=== PATIENT | female | born 1955 | race Caucasian/White ===

== ENCOUNTER → 2017-04-17 | Outpatient (CLI) | payer BC ==
[~2017-04-17] MED LIST: CATHETER FLUSH 10 ML SYR IV PRN; LEVO112T55 PO; LEVO125T66 PO; OXYC-202 PO
[2017-04-17 08:19] VITALS: BP 131/83
[2017-04-17 08:30] VITALS: BP 192/87
[2017-04-17 08:33] VITALS: BP 168/83
[2017-04-17 08:36] VITALS: BP 157/83
--- NOTE | 2017-04-18 10:27 | STRESS TEST ---
DATE OF SERVICE: 04/17/2017 NUCLEAR MYOVIEW REPORT SUMMARY: The patient was injected with 10.94 mCi of technetium-99 Myoview and the resting images were obtained. Then, the patient received a stress dose of 31.4 mCi of technetium-99, and the stress images were acquired. The test was supervised by Dr. Koroma. The resting and stress images were reviewed and compared in the short axis, horizontal long axis, and vertical long axis views. Review of the images showed breast attenuation affecting the quality of the images. There is mild decreased uptake involving the mid to apical anterior wall true apex with subtle reversibility. SSS is 1, SDS 1, TID value is 1.13. On the gated images, the left ventricle appeared to be normal size with normal contractility. Calculated ejection fraction is 58%. Anterior wall is tye normally. CONCLUSION: 1. Breast attenuation affecting the quality of the images with typical female pattern. No significant ischemia or infarction on SPECT images. 2. Normal left ventricular size with normal contractility, calculated ejection fraction is 58%. Job ID: [id number] DocumentID: [id number] Dictated Date: 04/17/2017 11:25:18 Regional Climate Change Analyst Date: 04/17/2017 14:34:11 Dictated By: LEO ESCALANTE MD
== END ==
LOC: CARD 07:11
PROVIDERS: ATTEND Internal Medicine
DX: R06.02 Shortness of breath (principal)
CPT/HCPCS: 78452; 93017

== ENCOUNTER → 2017-05-13 | Outpatient (CLI) | payer BC ==
[~2017-05-13] MED LIST changes: -CATHETER FLUSH 10 ML SYR IV PRN
--- NOTE | 2017-05-14 18:03 | Diagnostic Imaging Report ---
Bilateral screening mammogram 2D views with tomosynthesis The current study was also evaluated with a Computer Aided Detection (CAD) system. INDICATION: Screening. No current complaints stated on the questionnaire. COMPARISON: 08/07/2015. FINDINGS: The breasts are composed of scattered fibroglandular densities. There are multiple bilateral benign-appearing calcifications seen. Allowing for technique and positional differences, no suspicious change is seen. IMPRESSION: No significant change. ACR BI-RADS Category 2: Benign findings. Result letter will be mailed to the patient. Note: At least 10% of breast cancer is not imaged by mammography. Dictated by: Dictated on workstation # [id number]
== END ==
LOC: RAD 09:11
PROVIDERS: ATTEND Internal Medicine
DX: Z12.31 Encounter for screening mammogram for malignant neoplasm of breast (principal)
CPT/HCPCS: 77067

== ENCOUNTER → 2018-06-01 | Outpatient (CLI) | payer BC ==
--- NOTE | 2018-06-01 12:37 | Diagnostic Imaging Report ---
INDICATION: Routine screening. Comparison is made with prior mammogram from 05/13/2017 and 08/07/2015. 2-D and 3-D bilateral screening mammography was performed with a Computer Aided Detection (CAD) system. FINDINGS: Scattered fibroglandular densities are identified bilaterally. Numerous benign-appearing calcifications are identified bilaterally. There is an area of nodularity and architectural distortion in the central right breast at the nipple line on the CC view approximately 7 cm from the nipple. No definite correlate is seen on the MLO view but may be at the nipple line as well. Regardless additional views are recommended. Circumscribed density in the outer left breast is stable. No malignant-appearing microcalcifications are seen. Axillae are unremarkable. IMPRESSION: Right breast nodularity and architectural distortion. Additional views are recommended for further evaluation. ACR BI-RADS Category 0: Incomplete. (Needs additional imaging evaluation). Result letter will be mailed to the patient. Note: At least 10% of breast cancer is not imaged by mammography. Dictated by: Dictated on workstation # [id number]
== END ==
LOC: RAD 10:16
PROVIDERS: ATTEND Internal Medicine
DX: Z12.31 Encounter for screening mammogram for malignant neoplasm of breast (principal); N63.10 Unspecified lump in the right breast, unspecified quadrant; N64.89 Other specified disorders of breast
CPT/HCPCS: 77067

== ENCOUNTER → 2018-07-24 | Outpatient (CLI) | payer BC ==
[~2018-07-24] MED LIST changes: +GADOBUTROL 15 MMOL/15 ML (GADAVIST) VIAL IV ONE; -OXYC-202 PO; +OXYC1TAB12 PO
== END ==
LOC: RAD 09:19
PROVIDERS: ATTEND Surgery
DX: N63.10 Unspecified lump in the right breast, unspecified quadrant (principal); Z53.8 Procedure and treatment not carried out for other reasons

== ENCOUNTER 2019-12-14 09:30 | Inpatient (IN) | payer MEDICARE, OTHER ==
[~2019-12-14] VITALS: Ht 167.7 cm; Wt 106.7 kg
[~2019-12-14 09:30] MED LIST changes: -GADOBUTROL 15 MMOL/15 ML (GADAVIST) VIAL IV ONE
[2019-12-29] MEDS ORDERED: LEVO100T7 PO (12:54)
[2019-12-29] MEDS ORDERED: ANAS1TAB50 PO (12:54)
--- NOTE | 2020-01-03 08:41 | HISTORY AND PHYSICAL ---
DATE OF SERVICE: ADMISSION HISTORY AND PHYSICAL DATE OF ADMISSION: 01/04/2020. This will be for inpatient admission on 01/04/2020, date of admission, date of service, date of surgery will all be 01/04/2020 for left total knee arthroplasty. The patient will require regular inpatient admission for pain management, gait abnormalities, need for physical therapy and associated comorbidities. HISTORY OF PRESENT ILLNESS: The patient is a 64-year-old female with longstanding progressive left knee pain. She has undergone treatment with injections, anti-inflammatories and rest without relief. She reports functional impairment because of the knee. Her symptoms have been progressive to the point where it is interfering with her activities of daily living and because of this, she has elected to proceed with surgical intervention and with her x-rays. REVIEW OF SYSTEMS: No chest pain, no shortness of breath and no dysuria. PRIMARY CARE PROVIDER: Dr. Koroma. PAST MEDICAL HISTORY: Significant for breast cancer. Also significant for hypothyroidism. PAST SURGICAL HISTORY: Right mastectomy with lymph node biopsy with left prophylactic mastectomy, colonoscopy, cataract excision, appendectomy, tubal ligation, iliac vein exploration, D and C. FAMILY HISTORY: Significant for stroke and colon cancer. ALLERGIES: No known drug allergies. SOCIAL HISTORY: The patient denies alcohol or tobacco use. MEDICATIONS: Levothyroxine, Advil, Arimidex, omeprazole, Viactiv and MiraLax. PHYSICAL EXAMINATION: GENERAL: The patient is well developed, well-nourished, in no acute distress. HEENT: Normocephalic and atraumatic. Pupils are equal, round and reactive to light. Oropharynx is clear. NECK: Supple, no lymphadenopathy. LUNGS: Clear to auscultation bilaterally. HEART: Regular rate and rhythm. ABDOMEN: Soft, nontender and nondistended. EXTREMITIES: The patient ambulates with an antalgic gait on the left. She has pain along the medial joint line. She has pain medially with Geoff's. Range of motion is 0/4/130. There is no varus valgus laxity. Negative anterior and posterior drawer. IMPRESSION: Severe left knee osteoarthritis. PLAN: Left total knee arthroplasty. We discussed risks, benefits, options, ramifications and recovery. She understands and wishes to proceed. Job ID: [id number] DocumentID: [id number] Dictated Date: 12/21/2019 11:15:12 Outdoor Pursuits Instructor Date: 12/21/2019 11:39:46 Dictated By: DELMY LANDAVERDE MD
[2020-01-04] VITALS (10 sets, daily range): BP systolic 116–156; BP diastolic 63–78
[2020-01-04] MEDS: LACTATED RINGERS 1,000 ML IV PRN ×3 (06:21→09:47)
[2020-01-04] MEDS ORDERED: BUPIVACAINE 0.25% 30 ML (SENSORCAINE) VIAL ONE (06:29)
[2020-01-04] MEDS ORDERED: fentaNYL INJECTION 100 MCG/2 ML AMP ONE ×2 (06:29→08:31)
[2020-01-04] MEDS ORDERED: proPOfol 200 MG/20 ML (DIPRIVAN) VIAL IV ONE (06:29)
[2020-01-04] MEDS ORDERED: SEVOFLURANE (ULTANE) 15 ML INHAL SOLN ONE ×2 (06:29→09:01)
[2020-01-04] MEDS ORDERED: MIDAZOLAM 2 MG/2 ML (VERSED) VIAL ONE (06:29)
[2020-01-04] MEDS ORDERED: ONDANSETRON 4 MG/2 ML (SDV) Z0FRAN ONE ×3 (06:29→09:48)
[2020-01-04] MEDS ORDERED: LIDOCAINE PF 2% 5 ML (XYLOCAINE) VIAL ONE (06:29)
[2020-01-04] MEDS ORDERED: DEXAMETHASONE 10 MG/ML (DECADRON) 1 ML VIAL ONE (06:29)
[2020-01-04] MEDS ORDERED: SCOPOLAMINE 1.5 MG (TRANSDERM-SCOP) PATCH TOP ONE (06:30)
[2020-01-04] MEDS ORDERED: ONDANSETRON 4 MG/2 ML (SDV) Z0FRAN IV ONE (06:30)
[2020-01-04] MEDS ORDERED: CEFUROXIME INJECTION 1,500 MG in WATER (STERILE) FOR INJECTION 15 ML IV ONE (06:30)
[2020-01-04] MEDS ORDERED: FAMOTIDINE 20MG/2ML IV (PEPCID) IV ONE (06:30)
[2020-01-04] MEDS ORDERED: CATHETER FLUSH 10 ML SYR IV PRN (06:45)
[2020-01-04] MEDS ORDERED: ONDANSETRON 4 MG/2 ML (SDV) Z0FRAN IVP PRN (07:15)
[2020-01-04] MEDS ORDERED: morphine PCA 100 MG/100 ML BAG IV PRN (07:15)
[2020-01-04] MEDS ORDERED: ACETAMINOPHEN 325 MG TABLET PO PRN (07:15)
[2020-01-04] MEDS ORDERED: diphenhydrAMINE 50 MG/ML INJ (BENADRYL) IVP PRN (07:15)
--- NOTE | 2020-01-04 07:26 | Progress Note-Pre Operative ---
Pre-Operative Progress Note H&P Reviewed The H&P was reviewed, patient examined and no changes noted. Date Seen by Provider: Jan 04, 2020 Time Seen by Provider: 07:20 Date H&P Reviewed: Jan 04, 2020 Time H&P Reviewed: 07:11 Pre-Operative Diagnosis: left knee primary osteoarthritis DELMY LANDAVERDE MD Jan 04, 2020 07:26
--- NOTE | 2020-01-04 07:27 | Progress Note-Post Operative ---
Post-Operative Progess Note Surgeon (s)/Sap Solution Manager Consultant (s) Surgeon DELMY LANDAVERDE MD Sap Solution Manager Consultant: Jose Dinero Pre-Operative Diagnosis left knee primary osteoarthritis Post-Operative Diagnosis left knee primary osteoarthritis Procedure & Operative Findings Date of Procedure 01/04/20 Procedure Performed/Findings left total knee arthroplasty Anesthesia Type GETA Estimated Blood Loss Estimated blood loss (mL): minimal Specimens/Packing Specimens Removed none Packing: none DELMY LANDAVERDE MD Jan 04, 2020 07:27
[2020-01-04] MEDS ORDERED: OXYC1TAB87 PO (07:29)
[2020-01-04] MEDS ORDERED: INTRA-ARTICULAR IU ONE ×5 (07:30)
--- NOTE | 2020-01-04 07:31 | D/C HH Face to Face Order ---
D/C Face to Face Orders Reconcile Patient Problems Problems Reviewed?: Yes Instructions for Patient Via [facility] Now In Store, Patient Instructions/FollowUp: three weeks Physician to follow Patient: three weeks Discharge Diet for Home: Regular Diet Patient Data-Allergies,Ht & Wt Patient Allergies: Coded Allergies: codeine (Unverified Allergy, Unknown, 06/10/16) Height (Feet): 5 Height (Inches): 6.00 Weight (Pounds): 250 Weight (Ounces): 0.0 Home Health Need/Face to Face Date of Face to Face: Jan 04, 2020 Clinical Findings: Instability, Muscle weakness, Pain with ambulation, Unsteady gait I have seen Pt [id number]: Yes Discharged To: Home Diagnosis/Conditions: left total knee arthroplasty Patient is Homebound due to: Rosalba fall risk due to instabilty, Muscle weakness, Pain w/ambulation Homebound Status Due to the above stated illness, injury or surgical procedure (medical condition or diagnosis) and associated clinical findings, the patient is homebound because of his/her inability to leave home except with aid of a supportive device and/or person AND leaving the home requires a considerable and taxing effort or is medically contraindicated. Pt req the following assistanc: [facility] Nursing Orders Home Health Services Order: Physical Therapy-Evaluate & Treat DC left knee dimas and apply steri strips 01/18/20 Therapy Orders Therapy Orders: Physical Therapy, PT to assess for OT Therapy Specific Orders: Eval assistive deivces, Teach enviro modifications/safety, Gait training, Increase strength/endurance, Provider maintenance therapy, Restore ROM Certify Stmt I certify that this patient is under my care and that I, a nurse practitioner or a physician; a insurance sales assistant working with me, had a face to face encounter that - meets the physician face to face encounter requirements with this patient as dated. DELMY LANDAVERDE MD Jan 04, 2020 07:31
[2020-01-04] MEDS ORDERED: morphine INJ 10 MG/ML 1ML (SYR OR VIAL) ONE (09:43)
[2020-01-04] MEDS ORDERED: morphine INJ 10 MG/ML 1ML (SYR OR VIAL) IVP ONE (09:45)
[2020-01-04] MEDS: ONDANSETRON 4 MG/2 ML (SDV) Z0FRAN IVP PRN ×2 (09:46→09:54)
[2020-01-04] MEDS ORDERED: TRANEXAMIC ACID 100 MG/ML 10 ML INJECTION IV ONE (10:14)
[2020-01-04] MEDS: SENNA W/DOCUSATE (SENOKOT S) TABLET PO SCH ×2 (10:15→20:33)
--- NOTE | 2020-01-04 10:15 | NUR ---
PT ADMITTED TO ROOM 429 FOR TOTAL LEFT KNEE REPLACEMENT. PT IS A/OX4 BUT IS DROWSY/NAUSEATED. BILATERAL PEDAL PULSES PRESENT. YONATAN HOSE AND POLAR PACK IN PLACE TO LEFT KNEE. PT AND FAMILY ORIENTED TO ROOM, CALL LIGHT WITHIN REACH.
--- NOTE | 2020-01-04 10:17 | Diagnostic Imaging Report ---
INDICATION: Status post left knee replacement. COMPARISON: None. FINDINGS: Two views of the left knee were obtained. Expected postoperative changes are seen from left knee total arthroplasty. Femoral and tibial components appear well-seated. There is no evidence of periprosthetic fracture. There is a small amount of subcutaneous emphysema in the soft tissues over the knee. Skin dimas are seen centrally over the anterior aspect of the knee. No unexpected radiopaque foreign bodies are identified. IMPRESSION: Expected postsurgical changes from left knee total arthroplasty, as described above. No unexpected radiopaque foreign bodies. Dictated by: Dictated on workstation # [id number]
--- NOTE | 2020-01-04 11:21 | Consultation - Hospitalist ---
HPI History of Present Illness: HPI/Chief Complaint CC: Medical management following uncomplicated left knee replacement by Dr. Ruiz HPI: This is a 64yoWF clinic pt of mine with a history of breast cancer and hypothyroidism who presents after a left knee replacement in an uncomplicated manner. Currently she is nauseated but drowsy. Family is at the bedside and will monitor the pt closely in the meantime. Source: patient, family, RN/MD Exam Limitations: clinical condition Date Seen 01/04/20 Attending Physician Brendon Ruiz MD PCP Katherine Koroma DO Referring Physician Date of Admission Jan 04, 2020 at 06:11 Home Medications & Allergies Home Medications Reviewed patient Home Medication Reconciliation performed by pharmacy medication reconciliations pharmacy laboratory technician and/or nursing. Patients Allergies have been reviewed. Allergies Allergies Coded Allergies codeine (Unverified Allergy, Unknown, PT HAS RECEIVED MORPHINE IN THE PAST, 01/04/20) Past Uytjvlh-Czhrvw-Dzuofb Hx Past Med/Social Hx: Reviewed Nursing Past Med/Soc Hx, Reviewed and Corrections made Patient Social History Marrital Status: Employed/Student: employed (Occupational Therapy) Alcohol Use: Denies Use Recreational Drug Use: No Smoking Status: Never a Smoker Physical Abuse Screen: No Sexual Abuse: No Recent Foreign Travel: No Contact w/other who traveled: No Recent Hopitalizations: No Recent Infectious Disease Expo: No Immunizations Up To Date Date of Pneumonia Vaccine: Jul 30, 2019 Date of Influenza Vaccine: Jul 26, 2019 Seasonal Allergies Seasonal Allergies: Yes Past Medical History Surgeries: Breast Currently Using CPAP: No Currently Using BIPAP: No Reproductive: Yes (PMB) Sexually Transmitted Disease: No HIV/AIDS: No Gastrointestinal: Polyps Musculoskeletal: Arthritis Endocrine: Hypothyroidsim Loss of Vision: Denies Hearing Impairment: Denies Cancer: Breast What Type of Treatment Did You: Surgical Intervention History of Blood Disorders: No Adverse Reaction to Blood Bernardo: Yes (HAS HAD BLOOD WITH NO REACTION) Family History Alzheimer's disease 19 MOTHER Colon cancer G8 BROTHER Dementia 19 FATHER Diabetes mellitus G8 BROTHER G8 SISTER Hypertension 19 MOTHER Thyroid disease G8 BROTHER G8 SISTER Review of Systems Constitutional: see HPI Musculoskeletal: joint pain Physical Exam Physical Exam Vital Signs Vital Signs - First Documented 01/04/20 01/04/20 01/04/20 01/04/20 06:30 09:14 09:20 12:00 Temp 36.6 Pulse 80 Resp 20 B/P (MAP) 125/ Pulse Ox 96 O2 Delivery Room Air O2 Flow Rate 8 Capillary Refill : Less Than 3 Seconds Height, Weight, BMI Height: 5'6.00" Weight: 250lbs. 0.0oz. 113.415011ow; 232.80 BMI Method: General Appearance: WD/WN, Chronically ill, Mild Distress Eyes: Bilateral Eye Normal Inspection, Bilateral Eye PERRL HEENT: PERRL/EOMI, Normal ENT Inspection, Pharynx Normal Neck: Full Range of Motion, Normal Inspection, Non Tender, Supple, Carotid Bruit Respiratory: Chest Non Tender, Lungs Clear, Normal Breath Sounds, No Accessory Muscle Use, No Respiratory Distress Cardiovascular: Regular Rate, Rhythm, No Edema, No Gallop, No JVD, No Murmur, Normal Peripheral Pulses Gastrointestinal: Normal Bowel Sounds, No Organomegaly, No Pulsatile Mass, Non Tender, Soft Back: Normal Inspection, No CVA Tenderness, No Vertebral Tenderness Extremity: Normal Capillary Refill, Normal Inspection, Normal Range of Motion (except post op leg), Non Tender, No Calf Tenderness, No Pedal Edema Neurologic/Psychiatric: Alert, Oriented x3, No Motor/Sensory Deficits, Normal Mood/Affect Skin: Normal Color, Warm/Dry Lymphatic: No Adenopathy Results Results/Procedures Labs Patient resulted labs reviewed. Assessment/Plan Assessment and Plan Assess & Plan/Chief Complaint Assessment: Status post left knee replacement uncomplicated POD #0 Hypothyroidism for history of breast cancer Plan: Home meds Antiemetics Pain control Monitor labs Diagnosis/Problems Diagnosis/Problems (1) Osteoarthritis of left knee (2) Breast cancer (3) Hypothyroidism KATHERINE KOROMA DO Jan 04, 2020 11:21
[2020-01-04] MEDS ORDERED: METOCLOPRAMIDE INJ 10 MG/2 ML (REGLAN) IVP PRN (11:30)
[2020-01-04] MEDS ORDERED: SCOPOLAMINE 1.5 MG (TRANSDERM-SCOP) PATCH TD ONE (11:30)
[2020-01-04] MEDS ORDERED: PROMETHAZINE INJ 25 MG/ML (PHENERGAN) AMP IM PRN (11:30)
--- NOTE | 2020-01-04 12:40 | NUR ---
PT REQUESTING TO HOLD OFF ON ECONOMIC ANALYSIS DIRECTOR MORPHINE. PT WANTING TO TRY PO PERCOCET IF SHE IS ABLE TO TOLERATE CLEAR LIQUID TRAY. PT REPORTS HAVING DIZZINESS AND NAUSEA WITH MORPHINE PRIOR. DR LANDAVERDE NOTIFIED.
[2020-01-04] MEDS: NS IV 1000 ML 1,000 ML IV SCH (12:58)
--- NOTE | 2020-01-04 13:22 | OPERATIVE REPORT ---
DATE OF SERVICE: 01/04/2020 PREOPERATIVE DIAGNOSIS: Left knee primary osteoarthritis. POSTOPERATIVE DIAGNOSIS: Left knee primary osteoarthritis. PROCEDURE: Left total knee arthroplasty. SURGEON: Brendon Landaverde MD CONSTRUCTION PLUMBER: Jose Dinero, who assisted throughout the procedure and closed the incisions. ANESTHESIA: General endotracheal by Lia Espinosa CRNA. TOURNIQUET TIME: Approximately 70 minutes at 300 mmHg. ESTIMATED BLOOD LOSS: Minimal. DRAINS: None. COMPLICATIONS: None. POSTOPERATIVE PLAN: Routine total knee arthroplasty protocol. The patient was transferred to the recovery room awake and stable condition. MATERIALS: Microport cemented size 5 femur, cemented size 5 tibia with 10 mm insert and cemented size 29 patellar button. STATEMENT OF MEDICAL NECESSITY: The patient is a 64-year-old female with longstanding progressive left knee pain. Radiographs revealed severe medial and patellofemoral arthrosis. She has undergone treatment with injections, anti-inflammatories and rest without relief. Due to functional impairment and failure to improve with conservative measures, the patient elected to proceed with surgical intervention. DESCRIPTION OF PROCEDURE: After risks and benefits of procedure were discussed and questions were answered, an informed consent was signed and placed on chart, the operative site was confirmed in the preoperative holding area initialed by the surgeon. The patient was then transported to the operating room. After adequate levels of general endotracheal anesthetic were obtained, a timeout was called, confirming the operative site. The left lower extremity was prepped and draped in the usual sterile fashion with the leg elevated and the knee flexed, tourniquet was inflated to 300 mmHg. Standard anterior approach was utilized. Hemostasis was obtained with cautery. A medial parapatellar arthrotomy was performed leaving 1 cm cuff on the patella for later reattachment. A portion of the fat pad was resected. A subperiosteal release was performed in the proximal medial tibia being careful to stay on the bony surface. The ACL was resected. Intramedullary guide was passed into the femur. The distal cutting block was placed and distal cut was made, the femur sized to a size 5, and the 5 cutting block was placed parallel to the epicondylar axis and cuts were made from posterior to anterior. The subperiosteal release was then carefully performed on the posterior distal femur, being careful to stay on the bony surface. The intramedullary guide was passed into the tibia. The cutting block was placed. The drop lou transected the intermalleolar axis and the cut was made. The five baseplate provided excellent coverage and this was pinned into position. The drop lou transected the intermalleolar axis. This was prepared with a drill and keel punch. The femoral trial was placed and trochlear cut was made. The patella was then prepared using the freehand technique by resecting 10 mm off the undersurface. Peg guide was placed and peg holes were drilled with 10 mm tibial insert. Full extension was easily obtained under 20 degrees of flexion with gravity was easily obtained. There is no posterior medial or lateral laxity in flexion or extension. There was trace anterior drawer at 90 degrees of flexion. Otherwise, no anterior laxity was noted. The trials were removed. The joint was copiously irrigated. The periarticular block was placed in the posterior capsule, medial and lateral retinaculum, extensor mechanism and subcutaneous tissues. The bone ends were irrigated and dried. The tibial baseplate was cemented into position. Excessive cement was removed. The superior surface was irrigated and dried and the polyethylene insert was placed. The distal femur was irrigated and dried. The femoral prosthesis was cemented into position. Excessive cement was removed. The knee was brought into full extension until cement had cured. The undersurface of patella was irrigated and dried. The patellar button was cemented into position. Excessive cement was removed. Once cement had cured, the knee was taken through range of motion and the patella tracked well. There was no anterior, posterior or medial lateral laxity in flexion or extension. The joint was further irrigated with pulse lavage. Arthrotomy was closed with #2 Tevdek in [id number] interrupted fashion. Knee was flexed. Patella tracked well with no undue tension of the repair site. 0 Vicryl was used for deep subcutaneous tissue, 2-0 Vicryl for the superficial subcutaneous tissue, dimas used on the skin. A soft dressing was applied. The tourniquet was deflated. The patient was transferred to the recovery room awake and in stable condition. Job ID: [id number] DocumentID: [id number] Dictated Date: 01/04/2020 09:21:47 Texture Artist Date: 01/04/2020 13:21:39 Dictated By: BRENDON LANDAVERDE MD
--- NOTE | 2020-01-04 13:50 | Progress Note ---
Standard Progress Note Progress Notes/Assess & Plan Date Seen by a Provider: Jan 04, 2020 Time Seen by a Provider: 13:00 Progress/Assessment & Plan post op check c/o Nausea radiographs--HW well positioned no fracture LLE-2 plus DP pulse with brisk cap refill. Intact DF and PF of toes and ankle w ith intact sensation to light touch throughout s/p LTKA mobilize as able DC morphine dilaudid PRN DELMY LANDAVERDE MD Jan 04, 2020 13:50
[2020-01-04] MEDS ORDERED: HYDROmorphone 2 MG/ML VIAL (DILAUDID) IVP PRN (14:00)
--- NOTE | 2020-01-04 14:08 | Physical Therapy Evaluation ---
PT Evaluation-General Medical Diagnosis Admission Date Jan 04, 2020 at 06:11 Medical Diagnosis: left TKA Onset Date: Jan 04, 2020 Therapy Diagnosis Therapy Diagnosis: impaired mobility, strength, endurance, ROM Height/Weight Height (Feet): 5 Height (Inches): 6.00 Weight (Pounds): 250 Weight (Ounces): 0.0 Precautions Precautions/Isolations: Fall Prevention, Standard Precautions Referral Physician: Bar Reason for Referral: Evaluation/Treatment Medical History Additional Medical History PAST MEDICAL HISTORY: Significant for breast cancer. Also significant for hypothyroidism. PAST SURGICAL HISTORY: Right mastectomy with lymph node biopsy with left prophylactic mastectomy, colonoscopy, cataract excision, appendectomy, tubal ligation, iliac vein exploration, D and C. Reviewed History: Yes Social History Current Living Status: Significant Other Entry Into Home: Stairs Without Railing PT Steps Into Home: 2 Prior Prior Level of Function SCALE: Activities may be completed with or without assistive devices. 8-Ubjkqchxmu-uamhtha completes the activity by him/herself with no assistance from a helper. 5-Set-up or Clean-up Assistance-helper sets up or cleans up; patient completes activity. [place] assists only prior to or following the activity. 4-Supervision or Touching Assistance-helper provides verbal cues and/or touching/steadying and/or contact guard assistance as patient completes activity. Assistance may be provided throughout the activity or intermittently. 3-Partial/Moderate Assistance-helper does LESS THAN HALF the effort. [place] lifts, holds or supports trunk or limbs, but provides less than half the effort. 2-Substantial/Maximal Assistance-helper does MORE THAN HALF the effort. [place] lifts or holds trunk or limbs and provides more than half the effort. 3-Wdfbesvav-tcqlqn does ALL the effort. Patient does none of the effort to complete the activity. Or, the assistance of 2 or more helpers is required for the patient to complete the activity. If activity was not attempted, code reason: 7-Patient Refused. 9-Not Applicable-not attempted and the patient did not perform the activity before the current illness, exacerbation or injury. 10-Not Attempted due to Environmental Limitations-(lack of equipment, weather restraints, etc.). 88-Not Attempted due to Medical Conditions or Safety Concerns. Bed Mobility: 6 Transfers (B,C,W/C): 6 Gait: 6 Stairs: 6 Indoor Mobility (Ambulation): Independent Stairs: Independent PT Evaluation-Current Subjective Patient in bed pre tx, agrees to PT but patient is very nauseated and has been dry heaving. Patient has pain of 3/10 in left knee. Pt/Family Goals to be independent at home Objective Patient Orientation: Person, Place, Situation Attachments: SCD's (foot SCD put on left leg), Polar Pack, IV ROM/Strength ROM Lower Extremities left knee extension +2 degrees, flexion 100 degrees Sensory Hearing: Functional Sensation Right Lower Extremit: Intact Sensation Left Lower Extremity: Intact Transfers Roll Left to Right (QC): 6 Sit to Lying (QC): 6 Lying to Sitting/Side of Bed(Q: 3 Sit to Stand (QC): 4 cues for positioning, min assist for supine to sit Gait Does the Patient Walk?: Yes Mode of Locomotion: Walk Anticipated Mode of Locomotion: Walk Distance: 3' Gait Assistive Device: FWW Comments/Gait Description ambulated 3' sideways toward the head of the bed CGA Balance Sitting Static: Normal Sitting Dynamic: Normal Standing Static: Good Standing Dynamic: Good Treatment LLE TKA protocol x10 (AP, QS, HS, SLR, SAQ), CPM applied but it was defective, a new one will be sent to room and adjusted to patient later this afternoon. Assessment/Needs Patient has impaired mobility, strength, endurance, ROM. Patient in bed post tx with nurse call, phone, tray, all needs met, family in room. Patient very nauseated, started to actually vomit when sitting, nurse is aware. Rehab Potential: Fair PT Usp Goals Manual Training Teacher Goals PT Manual Training Teacher Goals Time Frame: Jan 11, 2020 Roll Left & Right (QC): 6 Sit to Lying (QC): 6 Lying-Sitting on Side/Bed(QC): 6 Sit to Stand (QC): 6 Chair/Cgo-za-Stenh Xfer(QC): 6 Walk 10 feet (QC): 4 Walk 50ft with 2 Turns (QC): 4 Walk 150 ft (QC): 4 PT Plan Problem List Problem List: Activity Tolerance, Functional Strength, Safety, Balance, Gait, Transfer, Bed Mobility, ROM Treatment/Plan Treatment Plan: Continue Plan of Care Treatment Plan: Bed Mobility, Education, Functional Activity Chalino, Functional Strength, Gait, Safety, Therapeutic Exercise, Transfers Treatment Duration: Jan 11, 2020 Frequency: 11 times per week Estimated Hrs Per Day: .25 hour per day Patient and/or Family Agrees t: Yes Safety Risks/Education Patient Education: Gait Training, Transfer Techniques, Correct Positioning, Safety Issues Teaching Recipient: Patient Teaching Methods: Demonstration, Discussion Response to Teaching: Reinforcement Needed Discharge Recommendations Plan Patient will perform bed mobility and transfer training, balance and endurance training, functional strengthening, stair training, gait training, and education, to improve functional mobility and independence at home. Therapy Discharge Recommendati: Home & Family Time/GCodes Time In: 1335 Time Out: 1400 Total Billed Treatment Time: 35 Total Billed Treatment 1 visit EVL 15' EX 10' TINO BARRERA PT Jan 04, 2020 14:08
[2020-01-04] MEDS: oxyCODONE/APAP 5/325MG (PERCOCET 5) TABLET PO PRN ×2 (14:19→23:02)
--- NOTE | 2020-01-04 14:53 | Physical Therapy Progress Note ---
Therapy Progress Note New CPM applied to patient's left leg, fit to leg and set to 60/-2. TINO BARRERA PT Jan 04, 2020 14:53
[2020-01-04] MEDS: CEFUROXIME INJECTION 750 MG in WATER (STERILE) FOR INJECTION 10 ML IV SCH ×2 (15:51→23:03)
[2020-01-04] MEDS ORDERED: PROMETHAZINE INJ 25 MG/ML (PHENERGAN) AMP IV PRN (16:45)
[2020-01-05 00:39] VITALS: BP 105/59
[2020-01-05] MEDS: NS IV 1000 ML 1,000 ML IV SCH ×2 (01:48→13:30)
[2020-01-05] MEDS: oxyCODONE/APAP 5/325MG (PERCOCET 5) TABLET PO PRN ×7 (03:58→23:44)
[2020-01-05 04:27] VITALS: BP 98/61
[2020-01-05] MEDS: ENOXAPARIN 30 MG/0.3 ML (LOVENOX) SYR SC SCH ×2 (06:12→20:19)
[2020-01-05] MEDS: MULTIVIT W/MINERALS TAB (THERAGRAN M) PO SCH (06:12)
[2020-01-05 06:58] LABS: HEMOGLOBIN 11.5 G/DL (11.5-16.0)
[2020-01-05 08:00] VITALS: BP 92/49
--- NOTE | 2020-01-05 08:00 | Progress Note ---
Standard Progress Note Progress Notes/Assess & Plan Date Seen by a Provider: Jan 05, 2020 Time Seen by a Provider: 07:59 Progress/Assessment & Plan post op check c/o Nausea radiographs--HW well positioned no fracture LLE-2 plus DP pulse with brisk cap refill. Intact DF and PF of toes and ankle w ith intact sensation to light touch throughout s/p LTKA mobilize as able DC morphine dilaudid PRN Final Diagnosis feeling much better today Vital Signs Date Time Temp Pulse Resp B/P (MAP) Pulse Ox O2 Delivery O2 Flow Rate FiO2 01/05/20 04:27 36.8 54 18 98/61 (73) 97 Room Air 01/05/20 00:39 37.4 61 20 105/59 (74) 95 Room Air 01/04/20 21:00 Room Air 01/04/20 19:44 36.0 58 18 116/65 (82) 99 Room Air 01/04/20 15:45 36.4 62 16 126/63 (84) 95 Room Air 01/04/20 12:00 36.0 80 16 150/73 (98) 97 01/04/20 10:25 96 Nasal Cannula 3.00 01/04/20 10:15 36.6 20 140/76 (97) 96 Nasal Cannula 3 01/04/20 10:15 Nasal Cannula 3 01/04/20 10:00 Nasal Cannula 3 01/04/20 10:00 20 136/72 (93) 95 Nasal Cannula 3 01/04/20 09:50 20 129/77 (94) 100 OxyMask 3 01/04/20 09:45 OxyMask 6 01/04/20 09:40 20 148/78 (101) 96 OxyMask 4 01/04/20 09:30 20 156/75 (102) 98 OxyMask 6 01/04/20 09:30 OxyMask 8 01/04/20 09:20 20 147/75 (99) 96 OxyMask 8 01/04/20 09:14 36.6 20 125/ 01/04/20 09:14 OxyMask 8 I & O 01/05/20 07:00 Intake Total 2050 ml Output Total 500 ml Balance 1550 ml Laboratory Tests Test 01/05/20 06:26 Range/Units Hemoglobin 11.5 # 11.5-16.0 G/DL Hematocrit 36 35-52 % LLE--dressing intact. active flexion to 100. no calf tenderness s/p LTKA doing very well PT/OT DELMY LANDAVERDE MD Jan 05, 2020 08:00
[2020-01-05] MEDS: ASPIRIN E.C. 81 MG (ECOTRIN) TAB PO SCH (08:27)
[2020-01-05] MEDS: SENNA W/DOCUSATE (SENOKOT S) TABLET PO SCH ×2 (08:27→20:20)
--- NOTE | 2020-01-05 09:56 | Physical Therapy Daily Note ---
PT Daily Note-Current Subjective Patient rates left knee pain 3/10 with meds issued. Agrees to PT. Pain Numeric Pain Scale: 3 Location: Left Location Body Site: Knee Pain Description: Acute Mental Status Patient Orientation: Normal For Age Attachments: IV Transfers SCALE: Activities may be completed with or without assistive devices. 6-Chtivbyjfj-kpuxvar completes the activity by him/herself with no assistance from a helper. 5-Set-up or Clean-up Assistance-helper sets up or cleans up; patient completes activity. [place] assists only prior to or following the activity. 4-Supervision or Touching Assistance-helper provides verbal cues and/or touching/steadying and/or contact guard assistance as patient completes activity. Assistance may be provided throughout the activity or intermittently. 3-Partial/Moderate Assistance-helper does LESS THAN HALF the effort. [place] lifts, holds or supports trunk or limbs, but provides less than half the effort. 2-Substantial/Maximal Assistance-helper does MORE THAN HALF the effort. [place] lifts or holds trunk or limbs and provides more than half the effort. 1-Zzltgrwma-vlyrkc does ALL the effort. Patient does none of the effort to complete the activity. Or, the assistance of 2 or more helpers is required for the patient to complete the activity. If activity was not attempted, code reason: 7-Patient Refused. 9-Not Applicable-not attempted and the patient did not perform the activity before the current illness, exacerbation or injury. 10-Not Attempted due to Environmental Limitations-(lack of equipment, weather restraints, etc.). 88-Not Attempted due to Medical Conditions or Safety Concerns. Roll Left & Right (QC): 6 Sit to Lying (QC): 6 Lying to Sitting/Side of Bed(Q: 6 Sit to Stand (QC): 6 Chair/Jsi-pz-Scmby Xfer(QC): 6 Gait Training Does the Patient Walk?: Yes Distance: 250' Walk 10 feet (QC): 6 Walk 50 ft with 2 Turns(QC): 6 Walk 150 ft (QC): 6 Gait Assistive Device: FWW slow, reciprocal pattern Exercises Supine Ex: Ankle pumps, Quad Set, Heel Slides, Straight leg raise Supine Reps: 15 Seated Therapy Exercises: Long arc quads Seated Reps: 15 Assessment Patient up in recliner with needs met. PT instructed patient and family to ambulate PRN in hallway during day. Plan dismissal tomorrow. PT Half-Way Goals Half-Way Goals PT Die Engraver Goals Time Frame: Jan 11, 2020 Roll Left & Right (QC): 6 Sit to Lying (QC): 6 Lying-Sitting on Side/Bed(QC): 6 Sit to Stand (QC): 6 Chair/Rdj-id-Bygve Xfer(QC): 6 Walk 10 feet (QC): 4 Walk 50ft with 2 Turns (QC): 4 Walk 150 ft (QC): 4 PT Plan Treatment/Plan Treatment Plan: Continue Plan of Care Treatment Plan: Bed Mobility, Education, Functional Activity Chalino, Functional Strength, Gait, Safety, Therapeutic Exercise, Transfers Treatment Duration: Jan 11, 2020 Frequency: 11 times per week Estimated Hrs Per Day: .25 hour per day Patient and/or Family Agrees t: Yes Time/GCodes Time In: 815 Time Out: 839 Total Billed Treatment Time: 24 Total Billed Treatment 1 visit GT 10 min EX 14 min VALE NAVARRETE PT Jan 05, 2020 09:56
--- NOTE | 2020-01-05 10:33 | Progress Note - Hospitalist ---
Subjective HPI/CC On Admission Date Seen by Provider: Jan 05, 2020 Time Seen by Provider: 09:00 CC: Medical management following uncomplicated left knee replacement by Dr. Ruiz HPI: This is a 64yo[facility] clinic pt of mine with a history of breast cancer and hypothyroidism who presents after a left knee replacement in an uncomplicated manner. Currently she is nauseated but drowsy. Family is at the bedside and will monitor the pt closely in the meantime. Subjective/Events-last exam Pt doing pretty well Hgb 11.5 No breathing problems Urinating well Had a shower No BMs yet Nausea is resolved Review of Systems General: Fatigue Musculoskeletal: other (Joint Pain) Objective Exam Vital Signs Vital Signs Date Time Temp Pulse Resp B/P (MAP) Pulse Ox O2 Delivery O2 Flow Rate FiO2 01/05/20 19:42 36.2 60 20 141/65 (90) 100 Nasal Cannula 2.00 Capillary Refill : Less Than 3 SecondsLess Than 3 Seconds General Appearance: No Apparent Distress, WD/WN Respiratory: Chest Non Tender, Lungs Clear, Normal Breath Sounds, No Accessory Muscle Use, No Respiratory Distress Cardiovascular: Regular Rate, Rhythm, No Edema, No Gallop, No JVD, No Murmur, Normal Peripheral Pulses Neurologic/Psychiatric: Alert, Oriented x3, No Motor/Sensory Deficits, Normal Mood/Affect Results/Procedures Lab Laboratory Tests 01/05/20 06:26 Patient resulted labs reviewed. Assessment/Plan Assessment and Plan Assess & Plan/Chief Complaint Assessment: Status post left knee replacement uncomplicated POD #1 Hypothyroidism for history of breast cancer Plan: Home meds Antiemetics Pain control Monitor labs Diagnosis/Problems Diagnosis/Problems (1) Osteoarthritis of left knee (2) Breast cancer (3) Hypothyroidism Clinical Quality Measures DVT/VTE Risk/Contraindication: Risk Factor Score Per Nursin RFS Level Per Nursing on Admit: 4+=Very High KISHA MUNROE DO Jan 05, 2020 10:33
--- NOTE | 2020-01-05 11:28 | NUR ---
IRF Evaluation Order received to evaluate patient for the ARU. Chart review complete and it appears patient is ambulating (250ft, RW) and transferring with independence; therefore, patient does not require intensive therapies, at this time. Thank you for this referral.
--- NOTE | 2020-01-05 11:31 | NUR ---
CM/SS visited with the patient for social service consult. Plan: The patient will go home with outpatient physical therapy and a front wheeled walker. Physical Therapy: The patient was provided with a preference sheet and reported to this ss that should would like to do outpatient through [facility]. CM/SS called and spoke with [facility] physical therapy who stated that they will put her down for Thursday01/09/20 at 12:45 p.m. CM/SS will inform the patient of this. CM/SS faxed medical information and the referral form. DME: The patient states that she has a CPAP machine at home that she has gotten from [facility] in [place]. CM/SS called and faxed the script to [facility] in [place]. No additional needs at this time. Will continue to follow. Addendum: 01/05/20 at 1307 by MARIA ISABEL TOVAR Gave the patient a written time and date for her appointment. She verbalized understanding.
--- NOTE | 2020-01-05 11:32 | Occupational Therapy Eval ---
OT Evaluation-General/PLF Medical Diagnosis Admission Date Jan 04, 2020 at 06:11 Medical Diagnosis: left TKA Onset Date: Jan 04, 2020 Therapy Diagnosis Therapy Diagnosis: Decreased ADL skills Height/Weight Height (Feet): 5 Height (Inches): 6.00 Weight (Pounds): 250 Weight (Ounces): 0.0 Precautions Precautions/Isolations: Fall Prevention, Standard Precautions Weight Bear Status Weight Bearing Restriction: Weight Bearing/Tolerated Referral Physician: Bra Referral Reason: Activity Tolerance, Self Care, Evaluation/Treatment, Strengthening/ROM Medical History Pertinent Medical History: Breast CA S/P Mastectomy Current History Elected knee replacement. Reviewed History: Yes Social History Home: Single Level Current Living Status: Significant Other Entry Into Home: Stairs Without Railing Steps Into Home: 2 ADL-Prior Level of Function SCALE: Activities may be completed with or without assistive devices. 9-Mplrphpdus-leugtyy completes the activity by him/herself with no assistance from a helper. 5-Set-up or Clean-up Assistance-helper sets up or cleans up; patient completes activity. [place] assists only prior to or following the activity. 4-Supervision or Touching Assistance-helper provides verbal cues and/or touching /steadying and/or contact guard assistance as patient completes activity. Assistance may be provided throughout the activity or intermittently. 3-Partial/Moderate Assistance-helper does LESS THAN HALF the effort. [place] lifts, holds or supports trunk or limbs, but provides less than half the effort. 2-Substantial/Maximal Assistance-helper does MORE THAN HALF the effort. [place] lifts or holds trunk or limbs and provides more than half the effort. 3-Osspqxaap-mtymjj does ALL the effort. Patient does none of the effort to complete the activity. Or, the assistance of 2 or more helpers is required for the patient to complete the activity. If activity was not attempted, code reason: 7-Patient Refused. 9-Not Applicable-not attempted and the patient did not perform the activity before the current illness, exacerbation or injury. 10-Not Attempted due to Environmental Limitations-(lack of equipment, weather restraints, etc.). 88-Not Attempted due to Medical Conditions or Safety Concerns. ADL PLOF Comments Pt. was independent with daily skills. Pt. works [employer]. Pt. drives and does not use any AE. Self Care: Independent Functional Cognition: Independent DME/Equipment: Tub/Shower Pt. does not have a walker. Drive Self: Yes OT Current Status Subjective No pain reported. Appearance Pt. sitting up in chair playing cards with family. Agrees to work with OT. Mental Status/Objective Patient Orientation: Person, Place, Time, Situation Attachments: IV Current Upper Extremity ROM WFL Upper Extremity Strength WFL ADL-Treatment Shower/Bathe Self (QC): 5 (Set up to shower.) Upper Body Dressing (QC): 10 (Pt. unable to don shirt due to IV. Nursing will assist with IV. Donned fresh hospital gown.) Lower Body Dressing (QC): 6 (Pt. independent to don underwear, pants, and slipper socks.) On/Off Footwear (QC): 6 Other Treatments Pt. agrees to shower. OT dons bag over left LE to keep dressings dry and intact. OT kept IV dry as well. Pt. able to ambulate into shower with walker and shower after set up. Donned fresh clothing after shower and ambulated to bed. Pt. demonstrated good balance and independence with tasks. Pt. also simulated tub/shower step over while stepping into shower. Pt. able to do this and was encouraged to have family with her at home first several times she showers. All needs met and polar ice pack on knee at end of treatment. No further OT needs warranted at this time. Education OT Patient Education: Correct positioning, Modified ADL techniques, Progress to willson Goal/Update tx plan, Purpose of tx/functional activities, Reviewed precautions, Rehab process, Transfer techniques Teaching Recipient: Patient Teaching Methods: Demonstration, Discussion Response to Teaching: Verbalize Understanding, Return Demonstration OT Senior Care Goals Converting Technician Goals Time Frame: Jan 05, 2020 1=Demonstrate adherence to instructed precautions during ADL tasks. 2=Patient will verbalize/demonstrate understanding of assistive devices/modifications for ADL. 3=Patient will improve strength/tolerance for activity to enable patient to perform ADL's. Pt. able to demonstrate independence/set up with ADLs, such as shower and dressing, and good functional strength. No further OT at this time. OT Education/Plan Problem List/Assessment Assessment: No Skilled OT Needs ID'd Discharge Recommendations Plan/Recommendations: Discontinue OT Therapy Discharge Recommendati: Home & Family Treatment Plan/Plan of Care Treatment,Training & Education: Yes Plan of Care: OTHER (No further OT needs at this time.) Treatment Duration: Jan 05, 2020 Frequency: 1 time per week Estimated Hrs Per Day: .5 hour per day Agreement: Yes Rehab Potential: Good Time/GCodes Start Time: 09:06 Stop Time: 09:50 Total Time Billed (hr/min): 44 Billed Treatment Time 1, EVL x 15minutes, ADL x 29 minutes Discharge OT. No further OT needs warranted at this time. SKYLER MORSE OT Jan 05, 2020 11:32
--- NOTE | 2020-01-05 11:51 | NUR ---
"RD ASSESSMENT PMHx: CA(breast); hypothyroidism PT INTERACTION: Pt was awake and pleasant during nutrition assessment. Pt states current appetite is okay and has been for some time. Note avg PO intake <25% x2meal, per chart review. Pt states following a regular diet at home and has no issues with chewing/swallowing food. Pt states some recent issues with nausea/vomiting. Pt states no recent issues with constipation/diarrhea, and that her last BM was 3d ago. Note pt currently on bowel regimen of senna BID, per chart review. Pt states no recent wt changes, and that her weight fluctuates up and down regularly. Note unable to determine recent wt hx, per chart review. ABNORMAL NUTRITION-RELATED LAB VALUES No labs drawn at this time Est. kcal needs: 2130-9200 kcal | 15-18 kcal/kg Est. Pro needs: 80-107 g Pro | 0.8-1.0 g Pro/kg PES STATEMENT: Inadequate oral intake (NI-2.1) related to loss of appetite | nausea | vomiting as evidenced by pt interview | avg PO intake <25% x2meal INTERVENTION: Continue with current diet order of Regular diet. Add Ensure Enlive (vary) to meals TID, for increased kcal intake. Provides 350 kcal and 13 g Pro per serving. Will continue to follow and reassess as pt needs, intake, and status change. MONITOR/EVALUATE: PO Intake; Plan of Care; Hydration Status; Weight Status; Lab Values Claudette Lam, MS, RD, LD"
[2020-01-05 12:00] VITALS: BP 101/62
--- NOTE | 2020-01-05 13:54 | Physical Therapy Daily Note ---
PT Daily Note-Current Subjective Patient agrees to PT. Reports compliance with HEP. Pain Numeric Pain Scale: 3 Location: Left Location Body Site: Knee Pain Description: Acute Mental Status Patient Orientation: Normal For Age Attachments: IV Transfers SCALE: Activities may be completed with or without assistive devices. 8-Xeeqjwywcv-mzxbtgl completes the activity by him/herself with no assistance from a helper. 5-Set-up or Clean-up Assistance-helper sets up or cleans up; patient completes activity. [place] assists only prior to or following the activity. 4-Supervision or Touching Assistance-helper provides verbal cues and/or touching/steadying and/or contact guard assistance as patient completes activity. Assistance may be provided throughout the activity or intermittently. 3-Partial/Moderate Assistance-helper does LESS THAN HALF the effort. [place] lifts, holds or supports trunk or limbs, but provides less than half the effort. 2-Substantial/Maximal Assistance-helper does MORE THAN HALF the effort. [place] l ifts or holds trunk or limbs and provides more than half the effort. 2-Zlpehnrjm-htlepy does ALL the effort. Patient does none of the effort to complete the activity. Or, the assistance of 2 or more helpers is required for the patient to complete the activity. If activity was not attempted, code reason: 7-Patient Refused. 9-Not Applicable-not attempted and the patient did not perform the activity before the current illness, exacerbation or injury. 10-Not Attempted due to Environmental Limitations-(lack of equipment, weather restraints, etc.). 88-Not Attempted due to Medical Conditions or Safety Concerns. Sit to Stand (QC): 6 Gait Training Does the Patient Walk?: Yes Distance: 300' Walk 10 feet (QC): 6 Walk 50 ft with 2 Turns(QC): 6 Walk 150 ft (QC): 6 Gait Assistive Device: FWW reciprocal pattern Exercises Seated Therapy Exercises: Ankle pumps, Long arc quads Seated Reps: 15 Assessment Patient tolerated treatment well and is up in room and hallway with family. Patient reports compliance with exercise program and plans dismissal in a.m. to home. PT Shelter Goals Med Surg Rn Goals PT Med Surg Rn Goals Time Frame: Jan 11, 2020 Roll Left & Right (QC): 6 Sit to Lying (QC): 6 Lying-Sitting on Side/Bed(QC): 6 Sit to Stand (QC): 6 Chair/Mlb-jy-Qsnyg Xfer(QC): 6 Walk 10 feet (QC): 4 Walk 50ft with 2 Turns (QC): 4 Walk 150 ft (QC): 4 PT Plan Treatment/Plan Treatment Plan: Continue Plan of Care Treatment Plan: Bed Mobility, Education, Functional Activity Chalino, Functional Strength, Gait, Safety, Therapeutic Exercise, Transfers Treatment Duration: Jan 11, 2020 Frequency: 11 times per week Estimated Hrs Per Day: .25 hour per day Patient and/or Family Agrees t: Yes Time/GCodes Time In: 1306 Time Out: 1320 Total Billed Treatment Time: 14 Total Billed Treatment 1 visit FA 14 min VALE NAVARRETE PT Jan 05, 2020 13:54
--- NOTE | 2020-01-05 15:14 | Anesthesia-General Post-Op ---
General Patient Condition Mental Status/LOC: Same as Preop Cardiovascular: Satisfactory Nausea/Vomiting: Absent Respiratory: Satisfactory Pain: Controlled Complications: Absent Post Op Complications Complications None Follow Up Care/Instructions Patient Instructions None needed. Anesthesia/Patient Condition Patient Condition Patient is doing well, no complaints, up ambulating in the halls, stable vital signs, no apparent adverse anesthesia problems. RUBIN MOORE DO Jan 05, 2020 15:14
[2020-01-05 16:26] VITALS: BP 111/55
--- NOTE | 2020-01-05 19:17 | DISCHARGE SUMMARY ---
DATE OF SERVICE: DIAGNOSES: 1. Left knee primary osteoarthritis. 2. Breast cancer. 3. Hypothyroidism. PROCEDURE: Left total knee arthroplasty. SUMMARY: The patient is a 64-year-old female who underwent a left total knee arthroplasty on the day of admission. Postoperatively, she did very well. At time of discharge, her wound was clean and dry. She had no calf tenderness. Negative Homans sign. She was tolerating diet well and tolerating pain with oral pain medication. CONDITION AT DISCHARGE: Good. DISCHARGE DIET: Regular. FOLLOWUP: Followup is in three weeks. Home physical therapy has been arranged. DISCHARGE MEDICATIONS: Home medications and Percocet as needed for pain as well as one aspirin per day for 4 weeks. ACTIVITIES: Weightbearing as tolerated with assistive devices, left lower extremity. Job ID: [id number] DocumentID: [id number] Dictated Date: 01/05/2020 19:08:36 Exerciser Date: 01/05/2020 19:16:09 Dictated By: DELMY LANDAVERDE MD
[2020-01-05 19:42] VITALS: BP 141/65
[2020-01-06 00:03] VITALS: BP 133/63
[2020-01-06] MEDS: NS IV 1000 ML 1,000 ML IV SCH ×2 (01:26→09:13)
--- OUTSIDE RECORDS SUMMARY | 2020-01-06 02:03 | XMS REPORT | Clinical Summary ---
Author Author User, Clau Jefferson Organization Katherine Koroma DO, FACP Address Unknown Phone Allergies, Adverse Reactions, Alerts Allergy Name Reaction Description Start Date Severity Status Pr ovider CODEINE fuzzy Mild Active Katherine Koroma Conditions or Problems Problem Name Problem Code Onset Date Status Entry Date Provider Comment Standard Description Annotate HYPOTHYROIDISM, PRIMARY 244.9 Active Andry Koroma Unspecified hypothyroidism WELL WOMAN V70.0 Active Katherine Koroma Routine general medical examination at a [facility] care facility HYPERGLYCEMIA, MILD 790.6 Active Katherine Koroma Other abnormal blood chemistry 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 MARRERO NASAL SP RAY (DEXAMETHASONE, GENTAMICIN, SALINE) No Longer Active Katherine Koroma SYNTHROID 0.112 MG TAB 1 PO daily LEVOTHYROXINE SODIUM 0 [id number] Active Katherine Koroma Vital Signs Date Name Value Unit Range Description blood pressure, diastolic - 8462-4 90 mm[Hg] BP velasquez blood pressure, systolic - 8480-6 142 mm[Hg] BP sys pulse rate E&M - 8867-4 66 /min H eart rate respiratory rate E&M - 9279-1 14 /min Resp rate temperature E&M 98.6 [degF] Body temp erature weight E&M - 3141-9 265 [lb_av] Weigh t Measured blood pressure, diastolic - 8462-4 78 mm[Hg] BP velasquez blood pressure, systolic - 8480-6 126 mm[Hg] BP sys pulse rate E&M - 8867-4 60 /min H eart rate respiratory rate E&M - 9279-1 12 /min Resp rate weight E&M - 3141-9 255 [lb_av] Weigh t Measured Diagnostic Results Date Name Value Unit Range Description Clinical Lists Update: CBC,CMP,FLP,TSH,F ree T4,HgA1c - Chemistry albumin, serum 3.8 g/dL Estimated Glomerular Filtration Rate (calc) 85 mL/ min/1.73m2 urea nitrogen, blood 18 mg/dL calcium, serum 9.0 mg/dL chloride, serum 105 mmol/L cholesterol, serum 176 mg/dL carbon dioxide, venous blood 29.0 mmol/L creatinine, serum 0.7 mg/dL thyroxine, serum, free 1.03 ng/dL HDL cholesterol, serum 53.0 mg/dL hemoglobin A1C, blood, as % of total hemoglobin 6.1 % thyroid stimulating hormone, serum 1.29 u[iU]/mL LDL cholesterol, serum 100 mg/dL potassium, serum 4.2 mmol/L protein, total, serum 6.2 g/dL aspartate aminotransferase (SGOT), serum 19 U/L alanine aminotransferase (SGPT), serum 24 U/L bilirubin, serum, total 0.6 mg/dL triglyceride, serum, fasting 116 mg/dL sodium, serum 141 mmol/L anion gap, serum 11 cholesterol/HDL ratio, serum, percent 3.3 glucose, plasma fasting 84 mg/dL alkaline phosphatase, serum 60 U/L Clinical Lists Update: CBC,CMP,FLP,TSH,F ree T4,HgA1c - Hematology hemoglobin, blood 14.3 g/dL hematocrit, blood 44 % platelet count 231 10*3/mm3 erythrocyte (RBC) count 4.80 10*6/mm3 leukocyte count, blood 7.4 10*3/mm3 mean corpuscular volume, RBC 91 fL red blood cell distribution width 14.3 % Clinical Lists Update: CMP,FLPTSH,FREE T 4,HGA1C - Chemistry creatinine, serum 0.7 mg/dL albumin, serum 3.9 g/dL HDL cholesterol, serum 52.0 mg/dL hemoglobin A1C, blood, as % of total hemoglobin 5.6 % thyroid stimulating hormone, serum 1.14 u[iU]/mL LDL cholesterol, serum 107 mg/dL potassium, serum 4.3 mmol/L protein, total, serum 6.3 g/dL aspartate aminotransferase (SGOT), serum 24 U/L alanine aminotransferase (SGPT), serum 28 U/L bilirubin, serum, total 0.5 mg/dL triglyceride, serum, fasting 113 mg/dL sodium, serum 139 mmol/L anion gap, serum 12 cholesterol/HDL ratio, serum, percent 3.5 glucose, plasma fasting 105 mg/dL Estimated Glomerular Filtration Rate (calc) 86 mL/ min/1.73m2 carbon dioxide, venous blood 23.0 mmol/L cholesterol, serum 182 mg/dL chloride, serum 108 mmol/L calcium, serum 9.2 mg/dL urea nitrogen, blood 17 mg/dL alkaline phosphatase, serum 69 U/L thyroxine, serum, free 0.96 ng/dL Encounters Code Encounter Date Provider Facility CPT-43851 Ofc Vst, Est Level III 19:20:43 CDT Katherine Koroma DO, [facility] CPT-94710 Ofc Vst, New Level III 16:55:21 CDT Katherine Koroma DO, FACP Procedures Code Procedure Name Date Entry Date Standard Desc ription CPT-06708 Preventive, Est, (40-64) 16:46:47 CDT 06/04 CPT-93046 Preventive, Est, (40-64) 20:38:36 CDT 06/19 CPT-04098 Handling of specimen from office to lab 15:43:58 CDT CPT-80663 Preventive, New, (40-64) 15:43:58 CDT 04/12
--- OUTSIDE RECORDS SUMMARY | 2020-01-06 02:03 | XMS REPORT | Clinical Summary ---
Author Author Miguel Angel, Clau Jefferson Organization Katherine Koroma DO, FACP [...] Koroma Routine general medical examination at a [facility] care facility HYPERGLYCEMIA, MILD 790.6 Active Katherine [...] TAB 1 PO BID CHAUNCEY XICILLIN-POT CLAVULANATE [id number] No Longer Active Katherine MARRERO NASAL SPRAY (DEXAMETHASONE, GENTAMICIN, SA LINE) 2 puffs each nostril TID for [address] MARRERO NASAL SP RAY (DEXAMETHASONE, GENTAMICIN, SALINE) No Longer Active Katherine Koroma SYNTHROID 0.112 MG TAB 1 PO daily LEVOTHYROXINE SODIUM 5 [id number] Active Jaylyn Mar Vital Signs Date Name Value Unit Range Description blood pressure, diastolic - 8462-4 78 mm[Hg] BP velasquez blood pressure, systolic - 8480-6 126 mm[Hg] BP sys pulse rate E&M - 8867-4 60 /min H eart rate respiratory rate E&M - 9279-1 12 /min Resp rate weight E&M - 3141-9 255 [lb_av] Weigh t Measured Diagnostic Results Date Name Value Unit Range Description Clinical Lists Update: CBC,CMP,FLP,TSH,F ree T4,HgA1c - Chemistry thyroxine, serum, free 1.03 ng/dL triglyceride, serum, fasting 116 mg/dL bilirubin, serum, total 0.6 mg/dL hemoglobin A1C, blood, as % of total hemoglobin 6.1 % cholesterol/HDL ratio, serum, percent 3.3 thyroid stimulating hormone, serum 1.29 u[iU]/mL LDL cholesterol, serum 100 mg/dL albumin, serum 3.8 g/dL Estimated Glomerular Filtration Rate (calc) 85 mL/ min/1.73m2 alkaline phosphatase, serum 60 U/L potassium, serum 4.2 mmol/L urea nitrogen, blood 18 mg/dL sodium, serum 141 mmol/L calcium, serum 9.0 mg/dL protein, total, serum 6.2 g/dL chloride, serum 105 mmol/L glucose, plasma fasting 84 mg/dL cholesterol, serum 176 mg/dL aspartate aminotransferase (SGOT), serum 19 U/L carbon dioxide, venous blood 29.0 mmol/L anion gap, serum 11 creatinine, serum 0.7 mg/dL alanine aminotransferase (SGPT), serum 24 U/L HDL cholesterol, serum 53.0 mg/dL Clinical Lists Update: CBC,CMP,FLP,TSH,F ree T4,HgA1c - Hematology hematocrit, blood 44 % red blood cell distribution width 14.3 % mean corpuscular volume, RBC 91 fL leukocyte count, blood 7.4 10*3/mm3 erythrocyte (RBC) count 4.80 10*6/mm3 hemoglobin, blood 14.3 g/dL platelet count 231 10*3/mm3 Clinical Lists Update: CMP,FLPTSH,FREE T 4,HGA1C - Chemistry albumin, serum 3.9 g/dL alkaline phosphatase, serum 69 U/L urea nitrogen, blood 17 mg/dL calcium, serum 9.2 mg/dL chloride, serum 108 mmol/L cholesterol, serum 182 mg/dL carbon dioxide, venous blood 23.0 mmol/L creatinine, serum 0.7 mg/dL thyroxine, serum, free 0.96 ng/dL HDL cholesterol, serum 52.0 mg/dL hemoglobin A1C, [...] Glomerular Filtration Rate (calc) 86 mL/ min/1.73m2 Encounters Code Encounter Date Provider Facility CPT-07742 Ofc Vst, Est Level III 19:20:43 CDT Katherine Koroma DO, [facility] CPT-61812 Ofc Vst, New Level III 16:55:21 CDT Katherine Koroma DO, FACP Procedures Code Procedure Name Date Entry Date Standard Desc ription CPT-32748 PreventiveDeana, (40-64) 20:38:36 CDT 06/19 CPT-71198 Handling of specimen from office to lab 15:43:58 CDT CPT-75234 Joaquin Jasso, (40-64) 15:43:58 CDT 04/12
--- OUTSIDE RECORDS SUMMARY | 2020-01-06 02:03 | XMS REPORT | Clinical Summary ---
Author Author User, Clau Jefferson Organization Katherine Koroma DO, FACP Address Unknown Phone Allergies, Adverse Reactions, Alerts Allergy Name Reaction Description Start Date Severity Status Pr ovider CODEINE fuzzy Mild Active Katherine Krooma Conditions or Problems Problem Name Problem Code Onset Date Status Entry Date Provider Comment Standard Description Annotate HYPOTHYROIDISM, PRIMARY 244.9 Active Andry Koroma Unspecified hypothyroidism WELL WOMAN V70.0 Active Katherine Koroma Routine general medical examination at a health care facility HYPERGLYCEMIA, MILD 790.6 Active Katherine Koroma Other abnormal blood chemistry 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 MARRERO NASAL SP RAY (DEXAMETHASONE, GENTAMICIN, SALINE) No Longer Active Katherine Koroma SYNTHROID 0.112 MG TAB 1 PO daily LEVOTHYROXINE SODIUM 5 [id number] Active Jaylyn Mar Vital Signs Date Name [...] Lists Update: CBC,CMP,FLP,TSH,F ree T4,HgA1c - Chemistry Estimated Glomerular Filtration Rate (calc) 85 mL/ min/1.73m2 glucose, plasma fasting 84 mg/dL albumin, serum 3.8 g/dL alkaline phosphatase, serum 60 U/L urea nitrogen, blood 18 mg/dL calcium, serum 9.0 mg/dL chloride, serum 105 mmol/L cholesterol, serum 176 mg/dL cholesterol/HDL ratio, serum, percent 3.3 anion gap, serum 11 sodium, serum 141 mmol/L triglyceride, serum, fasting 116 mg/dL bilirubin, serum, total 0.6 mg/dL alanine aminotransferase (SGPT), serum 24 U/L aspartate aminotransferase (SGOT), serum 19 U/L protein, total, serum 6.2 g/dL potassium, serum 4.2 mmol/L LDL cholesterol, serum 100 mg/dL thyroid stimulating hormone, serum 1.29 u[iU]/mL hemoglobin A1C, blood, as % of total hemoglobin 6.1 % HDL cholesterol, serum 53.0 mg/dL thyroxine, serum, free 1.03 ng/dL creatinine, serum 0.7 mg/dL carbon dioxide, venous blood 29.0 mmol/L Clinical Lists Update: CBC,CMP,FLP,TSH,F ree T4,HgA1c - Hematology mean corpuscular volume, RBC 91 fL red blood cell distribution width 14.3 % hemoglobin, blood 14.3 g/dL platelet count 231 10*3/mm3 erythrocyte (RBC) count 4.80 10*6/mm3 leukocyte count, blood 7.4 10*3/mm3 hematocrit, blood 44 % Encounters Code Encounter Date Provider Facility CPT-64558 Ofc Vst, Est Level III 19:20:43 CDT Katherine Koroma DO, FACP CPT-54043 Ofc Vst, New Level III 16:55:21 CDT Katherine Koroma DO, FACP Procedures Code Procedure Name Date Entry Date Standard Desc ription CPT-19017 PreventiveDeana, (40-64) 20:38:36 CDT 06/19 CPT-86077 Handling of specimen from office to lab 15:43:58 CDT CPT-40914 PreventiveJoaquin, (40-64) 15:43:58 CDT 04/12
--- OUTSIDE RECORDS SUMMARY | 2020-01-06 02:03 | XMS REPORT ---
Author Author [employer]. Organization [facility] Address [address] [address] Care Team Providers Care Manager Concrete Name Role Phone MUNROEKISHA AYALA Unavailable MUNROE DO, KISHA Unavailable Unavailable GIOVANNA MITCHELL, DIMITRI Jefferson Unavailable Unavailable WILEY MITCHELL, DELMER Ortega Unavailable Unavailable MUNROE, KISHA Unavailable Unavailable MUNROE, KISHA Unavailable Unavailable MUNROE, KISHA Unavailable Unavailable MUNROE, DO KISHA PCP Allergies No Information Medications Current Medications Medication Ingredient Drug Dose Dates Status Sig Sig Care Class(es) (Normalized) (Original) Provid er anastrozole anastrozole Aromatase Active no Anastrozol e no 1 mg oral Inhibitor information Active 1 name tablet (1 ORAL Daily (no source.) phone) Completed/Discontinued Medications Medication Ingredient Drug Dose Dates Status Sig Sig Care Class(es) (Normalized) (Original) Provid er no Oxycodone no 06-13-20 Complete no Oxycodone no information Hcl/Acetami information 16 - d information Hc l/Acetamin name (1 source.) nophen 12-29-19 ophen (no 20 Discontinued phone) 1-2 ORAL Every 4HRS as needed for Pain 60 June 13, 2016 11:48am December 29, 2019 Problems Active Problems Problem Normalized Date of Normalized Normalized Provider Fac ility Classification Problem(s) Problem Problem Problem Sta tus Onset/Resoluti Duration on Diverticulosis Diverticulosis Chronic Active DIMITRI DAWSON S Not Available and of colon MD (03035) diverticulitis (without (3 sources.) mention of hemorrhage) Residual Family history Episodic Active DIMITRI HEREDIA No t Available codes; of malignant MD (70503) unclassified neoplasm of (2 sources.) gastrointestin al tract Osteoarthritis Osteoarthritis Chronic Active DO KISHA As cension Via (1 source.) of left knee MUNROE [address] [facility] ([address]) Other Other Episodic Active KISHA MUNROE , Not Avai lable screening for screening DO (74997) suspected mammogram conditions Translations: (not mental [ ENCNTR disorders or SCREEN infectious MAMMOGRAM FOR disease) (16 MALIGNANT NE, sources.) INCONCLUSIVE MAMMOGRAM] NEGATED Other Episodic Active no name [facility] no specified [facility] information (3 disorders of Hospital - sources.) breast [place] (33305) Other and Personal Episodic Active DIMITRI HEREDIA Not Avai lable unspecified history of , MD (58347) benign colonic polyps neoplasm (3 sources.) Other female Polyp of Episodic Active DELMER Not Availa ble genital corpus uteri WILEY , (98244) disorders (3 MD sources.) Menopausal Postmenopausal Chronic Active DELMER Not Av ailable disorders (3 bleeding WILEY , (87178) sources.) MD Other lower Shortness of Episodic Active KISHA MUNROE , No t Available respiratory breath DO (14594) disease (5 sources.) Other Unspecified Episodic Active DIMITRI HEREDIA Not A vailable aftercare (3 follow-up , (94533) sources.) examination Past or Other Problems Problem Normalized Date of Normalized Normalized Provider Fac ility Classification Problem(s) Problem Problem Problem Sta tus Onset/Resoluti Duration on NEGATED Unspecified no information no information no name [facility] no lump in the [facility] information (4 right breast, Hospital - sources.) unspecified [place] quadrant (53648) Procedures Procedure Normalized Procedure Procedure Result Performer Facility Date 12-29-2019 Diagnostic radiography no information no name (no p vira) [facility] of chest, combined [facility] ([address]) and lateral 12-29-2019 Electrocardiographic no information no name (no shagufta ne) [facility] ([address]) Immunizations The data below is from unstructured sources Immunization Event Date Not Given Reason Dose Number Glass Inspector Lot Number Vaccine Information Statement (VIS) Deta il Results The data below is from unstructured sourcesNo known relevant diagnostic tests, laboratory data and/or discharge summary.No known relevant diagnostic tests and/or laboratory data.No known relevant diagnostic tests and/or laboratory data. Vital Signs The data below is from unstructured sources Vital Response Date/Time Height (Feet) 5 feet 12:04pm Height (Inches) 6.00 inches 06/10/2016 12:04pm Height (Calculated Centimeters) 167. 821906 cm 06/10/2016 12:04pm Weight (Pounds) 250 pounds 06/10/2016 12:04pm Weight (Ounces) 0.0 oz 0 06/10/2016 12:04pm Weight (Calculated Grams) 512724.094 gm 06/10/2016 12:04pm Weight (Calculated Kilograms) 113.39 8094 kilograms 06/10/2016 12:04pm Calculated BMI 41.60 12:04pm Vital Response Date/Time Temperature (Fahrenheit) 97.2 degree s F (97.6 - 99.5) 06/13/2016 5:00pm Temperature (Calculated Celsius) 36. 46658 degrees C (36.4 - 37.5) 06/13/2016 5:00pm Temperature Source Temporal 06/13/2016 5:00pm Pulse Rate (adult) 64 bpm (60 - 90) 06/13/2016 5:00pm Respiratory Rate 16 bpm (12 - 24) 06/13/2016 5:00pm O2 Sat by Pulse Oximetry 92 % (88 - 100) 06/13/2016 5:00pm Blood Pressure 126/67 mm Hg 06/13/2016 5:00pm Blood Pressure Mean 92 mm Hg 06/13/2016 2:00pm Pain Numeric Pain Scale 5-Moderate Pain 06/13/2016 3:23pm Pain Intensity 0 2015 5:30pm Height (Feet) 5 feet 2:00pm Height (Inches) 6.00 inches 06/13/2016 2:00pm Height (Calculated Centimeters) 167. 758758 cm 06/13/2016 2:00pm Weight (Pounds) 250 pounds 06/13/2016 2:00pm Weight (Ounces) 0.0 oz 0 06/13/2016 2:00pm Weight (Calculated Grams) 754954.09 gm 06/13/2016 2:00pm Weight (Calculated Kilograms) 113.39 8094 kilograms 06/13/2016 2:00pm Calculated BMI 40.4 05/26 2:00pm Capillary Refill Capillary Refill Less Than 3 Seconds 06/13/2016 2:00pm Vital Reading Result Col lection Date/Time Vital Reading Result Col lection Date/Time Interventions No Information Plan of Treatment Normalized Care Care Detail Care Activity Date Care Provider F acility Activity MRSA isol Org no information no information DO KISHA MUNROE As cension Via specific cx Ql (Unsp [address] [facility] l spec) ([address]) Patient referral no information no information DO KISHA MUNROE [facility] [address] [facility] ([address]) Goals Patient Goal Desired Goal no information no information Social History Normalized Code Original Code Date Value Tobacco smoking status Tobacco smoking status no information Never smoked tobacco NHIS NHIS (finding) no information no information 12-29-2019 Denies Use no information no information 12-29-2019 No no information no information 12-29-2019 Never a Smoker Sex Assigned At Sex Assigned At no information F emale Functional Status The data below is from unstructured sources Query Response Date Eric rded Patient Orientation Person Place Time Situation June 13, 2016 6:27pm No Functional Status information available Mental Status The data below is from unstructured sourcesNo Mental Status Information Available Encounters Encounter Normalized Encounter Encounter Diagnosis Care Provi gaviota Organization Date Type 07-24-2018 Patient encounter no information no name (no phone) no organization name (no phone) 06-16-2018 Patient encounter no information no name (no phone) no organization name (no phone) NEGATED Patient encounter no information no name (no phone) no organization name 06-01-2018 (no phone) 05-13-2017 Patient encounter no information no name (no phone) no organization name (no phone) 04-17-2017 Patient encounter no information no name (no phone) no organization name (no phone) 06-13-2016 Patient encounter no information no name (no phone) no organization name - (no phone) 06-13-2016 12-04-2014 Patient encounter no information no name (no phone) no organization name (no phone) 11-29-2014 Patient encounter no information no name (no phone) no organization name (no phone) 06-29-2014 Patient encounter no information no name (no phone) no organization name (no phone) 04-08-2013 Patient encounter no information no name (no phone) no organization name (no phone) 12-29-2019 Patient encounter no information (no phone) Ascen michael [facility] (no phone) 12-29-2019 08-23-2019 Patient encounter no information no name (no phone) no organization name - procedure (no phone) 08-23-2019 no information Pre-operative no name (no phone) no organiza tion name examination, (no phone) unspecified Medical Equipment The data below is from unstructured sourcesNo Medical Equipment Information available Payers Normalized Payer Value Private Health Insurance no information ([id number]) Medicare no information Evaluation note Note Type Note Facility Evaluation No Assessments Information Available A scension note Via [facility] ([id number]) Advance Directives Directive Response Recor ded Date/Time Advance Directives No 12:04pm Health Care Power of Rover Tender No 06/10/16 12:04pm Organ Donor Yes 06/10/16 12:04pm Resuscitation Status Full Code 06/10/16 12:04pm Directive Response Recor ded Date/Time Advance Directives No 2:00pm Health Care Power of Rover Tender No 06/13/16 2:00pm Organ Donor Yes 06/13/16 2:00pm Resuscitation Status Full Code 06/13/16 2:00pm Advance Directive Response Recorded Date/Time Advance Directives No [facility] 2019 12:00pm Health Care Power of Rover Tender No December 29, 2019 12:00pm Organ Donor Yes December 12:00pm Resuscitation Status Full Code December 29, 2019 12:00pm Discharge Instructions No hospital discharge instructions. Patient Instructions Physician Instructions New, Converted or Re-Newed RX: RX on Chart Patient Instructions: As directed Return to The Hospital For: As directed Discharge Diet: No Restrictions Follow Up Appt: Call to make follow up appt. for patient in 2 weeks. Activity: Rest for 24 hours, than as tolerated. Diet: As tolerated Tomorrow, may shower or tub bathe as desired. No driving for 24 hours, no alcoholic beverages for 24 hours, and nothing per vagina (no tampons, douching, or intercourse) for 2 weeks. Patient to return to the clinic as soon as possible for: Temperature greater than 101F, Severe Pain, Foul discharge from incision or vagina, Excessive Bleeding (more than a period). Care Plan Patient Instructions:: As directed Additional Source Comments This clinical document has been generated using [employer] software that has been certified by the Office of the National Coordinator for Health Information Technology (ONC 15.99.04.3023.Diam.31.00.0.807896) and the National Committee for Clam [employer] (NCQA, as an eMeasure certified technology). FOR RECORDS PERTAINING TO PATIENTS WHO ARE OR HAVE BEEN ENROLLED IN A CHEMICAL D EPENDENCY/SUBSTANCE ABUSE PROGRAM, SOME INFORMATION MAY BE OMITTED. This clinica l summary was aggregated from multiple sources. Caution should be exercised in using it in the provision of clinical care. This summary normalizes information from multiple sources, and as a consequence, information in this document may ma terially change the coding, format and clinical context of patient data. In napole[place] tion, data may be omitted in some cases. CLINICAL DECISIONS SHOULD BE BASED ON T HE PRIMARY CLINICAL RECORDS. [employer] provides no warranty or guara ntee of the accuracy or completeness of information in this document.The followi information is based on time limited clinical information
--- OUTSIDE RECORDS SUMMARY | 2020-01-06 02:03 | XMS REPORT | Clinical Summary ---
[...] TAB 1 PO BID CHAUNCEY XICILLIN-POT CLAVULANATE [id number] No Longer Active Katherine MARRERO NASAL SPRAY (DEXAMETHASONE, GENTAMICIN, SA LINE) 2 puffs each nostril TID for [address] MARRERO NASAL SP RAY (DEXAMETHASONE, GENTAMICIN, SALINE) No Longer Active Katherine Koroma SYNTHROID 0.112 MG TAB 1 PO daily LEVOTHYROXINE SODIUM 5 [id number] Active Jaylyn Mar Vital Signs Date Name [...] % Encounters Code Encounter Date Provider Facility CPT-71787 Ofc Vst, Est Level III 19:20:43 CDT Katherine Koroma DO, FACP CPT-42593 Ofc Vst, New Level III 16:55:21 CDT Katherine Koroma DO, FACP Procedures Code Procedure Name Date Entry Date Standard Desc ription CPT-53668 PreventiveDeana, (40-64) 20:38:36 CDT 06/19 CPT-98534 Handling of specimen from office to lab 15:43:58 CDT CPT-71839 PreventiveJoaquin, (40-64) 15:43:58 CDT 04/12
[2020-01-06 04:33] VITALS: BP 129/58
[2020-01-06 05:10] LABS: BASOPHILS % (AUTO) 0 % (0-10); EOSINOPHILS # (AUTO) 0.2 10^3/uL (0.0-0.3); EOSINOPHILS % (AUTO) 2 % (0-10); HEMATOCRIT 34 % (35-52); HEMOGLOBIN 11.4 G/DL (11.5-16.0); LYMPHOCYTES # (AUTO) 2.1 X 10^3 (1.0-4.0); LYMPHOCYTES % (AUTO) 29 % (12-44); MEAN CORPUSCULAR HEMOGLOBIN 29 PG (25-34); MEAN CORPUSCULAR HGB CONC 33 G/DL (32-36); MEAN CORPUSCULAR VOLUME 87 FL (80-99); MEAN PLATELET VOLUME 10.3 FL (7.4-10.4); MONOCYTES # (AUTO) 1.2 X 10^3 (0.0-1.0); MONOCYTES % (AUTO) 16 % (0-12); NEUTROPHILS # (AUTO) 3.9 X 10^3 (1.8-7.8); NEUTROPHILS % (AUTO) 53 % (42-75); PLATELET COUNT 180 10^3/uL (130-400); RED CELL DISTRIBUTION WIDTH 14.9 % (10.0-14.5); WHITE BLOOD COUNT 7.3 10^3/uL (4.3-11.0)
[2020-01-06 05:33] LABS: ALANINE AMINOTRANSFERASE 18 U/L (0-55); ALBUMIN 3.4 GM/DL (3.2-4.5); ALKALINE PHOSPHATASE 60 U/L (40-136); BILIRUBIN,TOTAL 0.5 MG/DL (0.1-1.0); BUN/CREATININE RATIO 28; CARBON DIOXIDE 21 MMOL/L (21-32); CHLORIDE 111 MMOL/L (98-107); CREATININE SERUM 0.71 MG/DL (0.60-1.30); GFR ESTIMATED > 60; GLUCOSE 94 MG/DL (70-105); POTASSIUM 4.2 MMOL/L (3.6-5.0); SODIUM 142 MMOL/L (135-145); TOTAL PROTEIN 5.6 GM/DL (6.4-8.2)
[2020-01-06] MEDS: oxyCODONE/APAP 5/325MG (PERCOCET 5) TABLET PO PRN ×2 (05:38→09:32)
[2020-01-06] MEDS ORDERED: LEVOTHYROXINE 100 MCG (LEVOTHROID) TAB PO SCH (06:30)
[2020-01-06] MEDS: MULTIVIT W/MINERALS TAB (THERAGRAN M) PO SCH (06:43)
--- NOTE | 2020-01-06 07:05 | Progress Note ---
Standard Progress Note Progress Notes/Assess & Plan Date Seen by a Provider: Jan 06, 2020 Time Seen by a Provider: 07:04 Progress/Assessment & Plan post op check c/o Nausea radiographs--HW well positioned no fracture LLE-2 plus DP pulse with brisk cap refill. Intact DF and PF of toes and ankle w ith intact sensation to light touch throughout s/p LTKA mobilize as able DC morphine dilaudid PRN Final Diagnosis no complaints Vital Signs Date Time Temp Pulse Resp B/P (MAP) Pulse Ox O2 Delivery O2 Flow Rate FiO2 01/06/20 04:33 37.0 80 18 129/58 (81) 93 Nasal Cannula 2.00 01/06/20 00:03 36.8 78 18 133/63 (86) 96 Nasal Cannula 2.00 01/05/20 20:25 Nasal Cannula 01/05/20 19:42 36.2 60 20 141/65 (90) 100 Nasal Cannula 2.00 01/05/20 16:26 36.5 61 15 111/55 (73) 97 NIV CPAP 01/05/20 12:00 36.7 53 16 101/62 (75) 97 Room Air 01/05/20 10:00 96 Room Air 01/05/20 08:00 36.8 69 18 92/49 (63) 96 Room Air I & O 01/06/20 07:00 Intake Total 2140 ml Balance 2140 ml Laboratory Tests Test 01/06/20 05:00 Range/Units White Blood Count 7.3 4.3-11.0 10^3/uL Red Blood Count 3.95 L 4.35-5.85 10^6/uL Hemoglobin 11.4 L 11.5-16.0 G/DL Hematocrit 34 L 35-52 % Mean Corpuscular Volume 87 80-99 FL Mean Corpuscular Hemoglobin 29 25-34 PG Mean Corpuscular Hemoglobin Concent 33 32-36 G/DL Red Cell Distribution Width 14.9 H 10.0-14.5 % Platelet Count 180 130-400 10^3/uL Mean Platelet Volume 10.3 7.4-10.4 FL Neutrophils (%) (Auto) 53 42-75 % Lymphocytes (%) (Auto) 29 12-44 % Monocytes (%) (Auto) 16 H 0-12 % Eosinophils (%) (Auto) 2 0-10 % Basophils (%) (Auto) 0 0-10 % Neutrophils # (Auto) 3.9 1.8-7.8 X 10^3 Lymphocytes # (Auto) 2.1 1.0-4.0 X 10^3 Monocytes # (Auto) 1.2 H 0.0-1.0 X 10^3 Eosinophils # (Auto) 0.2 0.0-0.3 10^3/uL Basophils # (Auto) 0.0 0.0-0.1 10^3/uL Sodium Level 142 135-145 MMOL/L Potassium Level 4.2 3.6-5.0 MMOL/L Chloride Level 111 H 98-107 MMOL/L Carbon Dioxide Level 21 21-32 MMOL/L Anion Gap 10 5-14 MMOL/L Blood Urea Nitrogen 20 H 7-18 MG/DL Creatinine 0.71 0.60-1.30 MG/DL Estimat Glomerular Filtration Rate > 60 BUN/Creatinine Ratio 28 Glucose Level 94 70-105 MG/DL Calcium Level 8.0 L 8.5-10.1 MG/DL Corrected Calcium 8.5 8.5-10.1 MG/DL Total Bilirubin 0.5 0.1-1.0 MG/DL Aspartate Amino Transf (AST/SGOT) 22 5-34 U/L Alanine Aminotransferase (ALT/SGPT) 18 0-55 U/L Alkaline Phosphatase 60 40-136 U/L Total Protein 5.6 L 6.4-8.2 GM/DL Albumin 3.4 3.2-4.5 GM/DL L knee incision clean and dry. No calf tenderness. s/p LTKA doing well DC after PT today DELMY LANDAVERDE MD Jan 06, 2020 07:05
[2020-01-06] MEDS: ENOXAPARIN 30 MG/0.3 ML (LOVENOX) SYR SC SCH (07:30)
[2020-01-06 08:00] VITALS: BP 123/83
[2020-01-06 08:30] VITALS: BP 123/83
[2020-01-06] MEDS ORDERED: ANASTROZOLE 1 MG TAB (ARIMIDEX) PO SCH (09:00)
[2020-01-06] MEDS: ASPIRIN E.C. 81 MG (ECOTRIN) TAB PO SCH (09:08)
[2020-01-06] MEDS: SENNA W/DOCUSATE (SENOKOT S) TABLET PO SCH (09:09)
--- NOTE | 2020-01-06 10:11 | Physical Therapy Daily Note ---
PT Daily Note-Current Subjective Patient agrees to PT. Pain Numeric Pain Scale: 5-Moderate Pain Location: Left Location Body Site: Knee Pain Description: Acute Mental Status Patient Orientation: Normal For Age Transfers SCALE: Activities may be completed with or without assistive devices. 1-Fmmvwdhfpi-kbzytju completes the activity by him/herself with no assistance from a helper. 5-Set-up or Clean-up Assistance-helper sets up or cleans up; patient completes activity. [place] assists only prior to or following the activity. 4-Supervision or Touching Assistance-helper provides verbal cues and/or touching/steadying and/or contact guard assistance as patient completes activity. Assistance may be provided throughout the activity or intermittently. 3-Partial/Moderate Assistance-helper does LESS THAN HALF the effort. [place] lifts, holds or supports trunk or limbs, but provides less than half the effort. 2-Substantial/Maximal Assistance-helper does MORE THAN HALF the effort. [place] lifts or holds trunk or limbs and provides more than half the effort. 9-Lnmkilzvx-iezdpg does ALL the effort. Patient does none of the effort to complete the activity. Or, the assistance of 2 or more helpers is required for the patient to complete the activity. If activity was not attempted, code reason: 7-Patient Refused. 9-Not Applicable-not attempted and the patient did not perform the activity before the current illness, exacerbation or injury. 10-Not Attempted due to Environmental Limitations-(lack of equipment, weather restraints, etc.). 88-Not Attempted due to Medical Conditions or Safety Concerns. Roll Left & Right (QC): 6 Sit to Lying (QC): 6 Lying to Sitting/Side of Bed(Q: 6 Sit to Stand (QC): 6 Chair/Wvg-ak-Ibfew Xfer(QC): 6 Gait Training Does the Patient Walk?: Yes Distance: 300' x 2 Walk 10 feet (QC): 6 Walk 50 ft with 2 Turns(QC): 6 Walk 150 ft (QC): 6 Gait Assistive Device: FWW safe and functional Stair Training Stair Training: Handrails/: 1 handrail, uses walker #of Steps: 4 1 Step (curb) (QC): 6 4 Steps (QC): 6 Stairs: Pattern: Step to Exercises Supine Ex: Ankle pumps, Quad Set, Heel Slides, Straight leg raise Supine Reps: 15 Seated Therapy Exercises: Long arc quads Seated Reps: 15 Assessment Patient dismissing to home and outpatient PT on this date. Patient progressing with treatment plan and is compliant withe HEP. PT Fdc Goals Alarm Signal Operator Goals PT Fdc Goals Time Frame: Jan 11, 2020 Roll Left & Right (QC): 6 Sit to Lying (QC): 6 Lying-Sitting on Side/Bed(QC): 6 Sit to Stand (QC): 6 Chair/Hiw-gj-Rvdfs Xfer(QC): 6 Walk 10 feet (QC): 4 Walk 50ft with 2 Turns (QC): 4 Walk 150 ft (QC): 4 PT Plan Treatment/Plan Treatment Plan: Discontinue PT, goals met Treatment Plan: Bed Mobility, Education, Functional Activity [place], Functional Strength, Gait, Safety, Therapeutic Exercise, Transfers Treatment Duration: Jan 11, 2020 Frequency: 11 times per week Estimated Hrs Per Day: .25 hour per day Patient and/or Family Agrees t: Yes Time/GCodes Time In: 840 Time Out: 853 Total Billed Treatment Time: 13 Total Billed Treatment 1 visit FA 13 min VALE NAVARRETE PT Jan 06, 2020 10:11
== END 2020-01-06 09:45 | disposition home health service (06) | DRG 470 ==
LOC: 4TH 01-04 06:11
PROVIDERS: ADMIT Orthopaedic Surgery; ATTEND Orthopaedic Surgery
PROC: 0SRD0J9 Replacement of Left Knee Joint with Synthetic Substitute, Cemented, Open Approach (ICD-10-PCS; principal; 2020-01-04 07:33)
DX: M17.12 Unilateral primary osteoarthritis, left knee (principal); E03.9 Hypothyroidism, unspecified; G47.33 Obstructive sleep apnea (adult) (pediatric); J30.2 Other seasonal allergic rhinitis; Z90.13 Acquired absence of bilateral breasts and nipples; Z85.3 Personal history of malignant neoplasm of breast; Z98.51 Tubal ligation status; Z98.49 Cataract extraction status, unspecified eye; Z96.1 Presence of intraocular lens; M10.9 Gout, unspecified
CPT/HCPCS: 36415; 73560; 80053; 85014; 85018; 85025; 86850; 86900; 86901

== ENCOUNTER 2019-12-29 11:51 | Outpatient (CLI) | payer MEDICARE, OTHER ==
[~2019-12-29] VITALS: Ht 167.7 cm; Wt 106.7 kg
[2019-12-29 12:05] VITALS: BP 142/78
[2019-12-29 12:50] LABS: BILIRUBIN,URINE NEGATIVE (NEGATIVE); CLARITY,URINE CLEAR; COLOR,URINE YELLOW; GLUCOSE, URINE (UA) NEGATIVE (NEGATIVE); KETONES,URINE NEGATIVE (NEGATIVE); LEUKOCYTE ESTERASE ,URINE NEGATIVE (NEGATIVE); NITRITE,URINE NEGATIVE (NEGATIVE); PROTEIN,URINE NEGATIVE (NEGATIVE)
[2019-12-29 12:52] LABS: BASOPHILS % (AUTO) 0 % (0-10); EOSINOPHILS # (AUTO) 0.2 10^3/uL (0.0-0.3); EOSINOPHILS % (AUTO) 3 % (0-10); HEMATOCRIT 44 % (35-52); HEMOGLOBIN 14.7 G/DL (11.5-16.0); LYMPHOCYTES # (AUTO) 1.9 X 10^3 (1.0-4.0); LYMPHOCYTES % (AUTO) 30 % (12-44); MEAN CORPUSCULAR HEMOGLOBIN 29 PG (25-34); MEAN CORPUSCULAR HGB CONC 33 G/DL (32-36); MEAN CORPUSCULAR VOLUME 86 FL (80-99); MEAN PLATELET VOLUME 10.6 FL (7.4-10.4); MONOCYTES # (AUTO) 0.6 X 10^3 (0.0-1.0); MONOCYTES % (AUTO) 9 % (0-12); NEUTROPHILS # (AUTO) 3.6 X 10^3 (1.8-7.8); NEUTROPHILS % (AUTO) 57 % (42-75); PLATELET COUNT 188 10^3/uL (130-400); RED CELL DISTRIBUTION WIDTH 14.7 % (10.0-14.5); WHITE BLOOD COUNT 6.4 10^3/uL (4.3-11.0)
[2019-12-29] MEDS ORDERED: ANAS1TAB50 PO (12:54)
[2019-12-29] MEDS ORDERED: LEVO100T7 PO (12:54)
[2019-12-29 12:58] LABS: BACTERIA,URINE NEGATIVE /HPF; SQUAMOUS EPITHELIAL CELL,UR RARE /HPF
[2019-12-29 13:00] LABS: PROTHROMBIN TIME PATIENT 13.4 SEC (12.2-14.7)
[2019-12-29 13:14] LABS: ALANINE AMINOTRANSFERASE 19 U/L (0-55); ALBUMIN 4.1 GM/DL (3.2-4.5); ALKALINE PHOSPHATASE 81 U/L (40-136); BILIRUBIN,TOTAL 0.5 MG/DL (0.1-1.0); BUN/CREATININE RATIO 28; CALCIUM 9.1 MG/DL (8.5-10.1); CARBON DIOXIDE 23 MMOL/L (21-32); CHLORIDE 108 MMOL/L (98-107); CREATININE SERUM 0.72 MG/DL (0.60-1.30); GFR ESTIMATED > 60; GLUCOSE 80 MG/DL (70-105); POTASSIUM 3.8 MMOL/L (3.6-5.0); SODIUM 143 MMOL/L (135-145); TOTAL PROTEIN 6.8 GM/DL (6.4-8.2)
--- NOTE | 2019-12-29 13:24 | Diagnostic Imaging Report ---
INDICATION: Preop for total knee replacement surgery. TIME OF EXAM: 12:52 p.m. COMPARISON: No prior studies are available for comparison. The heart size is normal. The pulmonary vascularity is unremarkable. The lungs are clear. No infiltrate, effusion or pneumothorax is detected. IMPRESSION: No acute cardiopulmonary process is detected. Dictated by: Dictated on workstation # [id number]
[2019-12-29 13:50] LABS: ERYTHROCYTE SEDIMENTATION RATE 3 MM/HR (0-30)
== END 2019-12-29 12:55 | disposition home or self-care (01) ==
LOC: PREOP 11:51
PROVIDERS: ATTEND Orthopaedic Surgery
DX: Z01.818 Encounter for other preprocedural examination (principal); Z01.812 Encounter for preprocedural laboratory examination; M17.12 Unilateral primary osteoarthritis, left knee
CPT/HCPCS: 36415; 71046; 80053; 81000; 85025; 85610; 85652; 86850; 86900; 86901; 87081; 93005

== ENCOUNTER 2020-07-04 10:24 | Outpatient (CLI) | payer MEDICARE, OTHER ==
[~2020-07-04] VITALS: Ht 170 cm; Wt 100.0 kg
[~2020-07-04 10:24] MED LIST changes: +ANAS1TAB50 PO; +ASPI-999 PO; +ATOR10TA66 PO; +LEVO100T7 PO; +OXYC1TAB87 PO
== END 2020-07-04 10:26 ==
LOC: PREOP 10:24
PROVIDERS: ATTEND Surgery
DX: Z01.818 Encounter for other preprocedural examination (principal)

== ENCOUNTER 2020-07-10 06:59 | Day surgery (SDC) | payer MEDICARE, OTHER ==
[2020-07-10] VITALS (7 sets, daily range): BP systolic 97–123; BP diastolic 54–80
[~2020-07-10] VITALS: Ht 170 cm; Wt 100.0 kg
[2020-07-10] MEDS ORDERED: PROPOFOL INJECTION 50 ML IV ONE (07:07)
[2020-07-10] MEDS ORDERED: MIDAZOLAM 2 MG/2 ML (VERSED) VIAL ONE (07:07)
[2020-07-10] MEDS ORDERED: LACTATED RINGERS 1,000 ML IV ONE (07:08)
[2020-07-10] MEDS ORDERED: LACTATED RINGERS 1,000 ML IV STA (07:18)
[2020-07-10] MEDS ORDERED: ceFAZolin 2 GM IV Premixed 50 ML IV ONE (07:30)
--- NOTE | 2020-07-10 08:36 | Progress Note-Post Operative ---
Post-Operative Progess Note Surgeon (s)/Chipper (s) Surgeon SHEELA TRUJILLO DO Chipper: na Pre-Operative Diagnosis hx polyps, family hx colon cancer Post-Operative Diagnosis diverticulosis Procedure & Operative Findings Date of Procedure 07/10/20 Procedure Performed/Findings colonoscopy Anesthesia Type per senior benefits manager Estimated Blood Loss Estimated blood loss (mL): none Specimens/Packing Specimens Removed none SHEELA TRUJILLO DO Jul 10, 2020 08:36
--- NOTE | 2020-07-10 08:40 | Discharge Inst-Simple/Standard ---
Discharge Inst-Standard Patient Instructions/Follow Up Plan of Care/Instructions/FU: 5 years Corrina- If any issues before then be seen at that time. Activity as Tolerated: Yes Discharge Diet: Regular Diet (high fiber) SHEELA TRUJILLO DO Jul 10, 2020 08:40
--- NOTE | 2020-07-10 12:50 | OPERATIVE REPORT ---
DATE OF SERVICE: 07/10/2020 PREOPERATIVE DIAGNOSES: History of colon polyps, family history of colon cancer. POSTOPERATIVE DIAGNOSIS: Diverticulosis. PROCEDURE: Colonoscopy. SURGEON: Sheela Houser DO ANESTHESIA: Per HUC. ESTIMATED BLOOD LOSS: None. COMPLICATIONS: None. INDICATIONS: The patient is a 64-year-old female with need for colonoscopy. She understands risks and benefits of procedure and wished to proceed with procedure. Consent was signed in the chart. DESCRIPTION OF PROCEDURE: The patient was taken to the endoscopy suite, placed in left lateral recumbent position. Timeout was performed. Digital rectal exam was performed. There were no palpable polyps, masses or ulcerations. Scope was inserted in the rectum, advanced all the way to cecum with minimal difficulty. Prep was adequate. Scope was then slowly retracted back. There were no polyps, masses or ulcerations within the cecum, ascending, transverse, descending colon, sigmoid colon. Minimal amount of diverticulosis is present. No polyps, masses or ulcerations. Scope was continuously retracted back until in the rectum where it was also retroflexed noting no other pathology. Scope was returned to its normal position, slowly withdrawn until completely removed. The patient tolerated procedure well without any complications. She was taken to recovery room in stable condition. RECOMMENDATIONS: The patient will need repeat colonoscopy in five years. Any issues before that be seen at that time. The patient recommended high fiber diet due to diverticulosis. Job ID: [id number] DocumentID: [id number] Dictated Date: 07/10/2020 08:42:10 [place] Cutter Helper Date: 07/10/2020 12:49:32 Dictated By: SHEELA HOUSER DO
--- NOTE | 2020-07-10 13:47 | Anesthesia-General Post-Op ---
MAC Patient Condition Mental Status/LOC: Same as Preop Cardiovascular: Satisfactory Nausea/Vomiting: Absent Respiratory: Satisfactory Pain: Controlled Complications: Absent Post Op Complications Complications None Follow Up Care/Instructions Patient Instructions None needed. Anesthesiology Discharge Order Discharge Order Patient is doing well, no complaints, stable vital signs, no apparent adverse anesthesia problems. No complications reported per nursing. ISABEL QUIROS CRNA Jul 10, 2020 13:47
== END 2020-07-10 09:10 | disposition home or self-care (01) ==
LOC: ENDO 06:59
PROVIDERS: ATTEND Surgery
DX: Z12.11 Encounter for screening for malignant neoplasm of colon (principal); Z86.010 Personal history of colon polyps; Z80.0 Family history of malignant neoplasm of digestive organs; G47.33 Obstructive sleep apnea (adult) (pediatric); E78.5 Hyperlipidemia, unspecified; Z88.5 Allergy status to narcotic agent; Z79.890 Hormone replacement therapy; Z79.899 Other long term (current) drug therapy; Z86.73 Personal history of transient ischemic attack (TIA), and cerebral infarction without residual deficits; Z85.3 Personal history of malignant neoplasm of breast; Z96.652 Presence of left artificial knee joint; Z99.89 Dependence on other enabling machines and devices

== ENCOUNTER 2020-07-19 08:00 | Day surgery (SDC) | payer MEDICARE, OTHER ==
[2020-07-19] VITALS (8 sets, daily range): BP systolic 119–169; BP diastolic 76–100
[~2020-07-19] VITALS: Ht 170 cm; Wt 102.0 kg
[2020-07-19 07:47] LABS: HEMOGLOBIN 13.6 g/dL (11.5-16.0); MEAN PLATELET VOLUME 9.9 fL (9.0-12.2); WHITE BLOOD COUNT 6.5 10^3/uL (4.3-11.0)
[~2020-07-19 08:00] MED LIST changes: +HURRICAINE EXT TUBE (BENZOCAINE) ONE; +NS IV 1000 ML 1,000 ML IV SCH; +NS IV 1000 ML 1,000 ML ONE
[2020-07-19 08:08] LABS: ALANINE AMINOTRANSFERASE 17 U/L (0-55); ALBUMIN 3.9 GM/DL (3.2-4.5); ALKALINE PHOSPHATASE 73 U/L (40-136); BILIRUBIN,TOTAL 0.8 MG/DL (0.1-1.0); BUN/CREATININE RATIO 30; CALCIUM 8.7 MG/DL (8.5-10.1); CARBON DIOXIDE 21 MMOL/L (21-32); CHLORIDE 109 MMOL/L (98-107); CREATININE SERUM 0.79 MG/DL (0.60-1.30); GFR ESTIMATED > 60; GLUCOSE 87 MG/DL (70-105); POTASSIUM 3.9 MMOL/L (3.6-5.0); SODIUM 141 MMOL/L (135-145); TOTAL PROTEIN 6.5 GM/DL (6.4-8.2)
[2020-07-19 08:09] LABS: PROTHROMBIN TIME PATIENT 13.9 SEC (12.2-14.7)
[2020-07-19] MEDS ORDERED: POLY17PO31 PO (08:14)
[2020-07-19] MEDS ORDERED: MIDAZOLAM 5 MG/5 ML (VERSED) VIAL ONE (08:29)
[2020-07-19] MEDS ORDERED: fentaNYL INJECTION 100 MCG/2 ML AMP ONE (08:30)
[2020-07-19] MEDS ORDERED: LIDOCAINE 1% INJ 20 ML 20 ML VIAL ONE (09:16)
--- NOTE | 2020-07-19 11:12 | Implantation of Loop Monitor ---
Implant of Loop Monitior PROCEDURE PHYSICIAN: Patricia Brunson MD IMPLANTATION OF LOOP MONITOR REPORT DATE OF PROCEDURE: 07/19/20 PERFORMING PHYSICIAN: Dr. Ap Brunson. INDICATION: Cryptogenic stroke, Long-term surveillance of atrial fibrillation PREOP DIAGNOSIS: Cryptogenic stroke, Long-term surveillance of atrial fibrillation POSTOP DIAGNOSIS: Cryptogenic stroke, s/p implantation of loop recorder. PROCEDURE DETAILS: The patient is a 64 female with history of cryptogenic stroke. Therefore implantable loop recorder was discussed and agreed with the patient. Informed consent was taken. All risks and complications were discussed at length. The patient was draped and prepped in the usual sterile fashion. Local anesthesia was lidocaine, which was given in the substernal area close to the 4th intercostal space. Loop monitor was implanted according to the protocol. Steri- Strips were placed at the end of the procedure. There were no complications and the patient tolerated the procedure well. ANESTHESIA: Local anesthesia with lidocaine. COMPLICATIONS: None CONTRAST/FLUOROSCOPY: None CONCLUSION: 1. Successful implantation of loop monitor for cryptogenic stroke. 2. No complication and the patient tolerated the procedure well. Patricia Brunson MD, [facility] Cardiac Electrophysiology Ronny BRUNSON MD Jul 19, 2020 11:12
--- NOTE | 2020-07-19 11:15 | NUR ---
PT NUERO'S IN TACT, HOLLIE HANDS AND FEET STRONG AND EQUAL. EYES PERRL. IV DC'D, CATHETER INTACT, DRSG APPLIED. PT AMBULATED TO BATHROOM WITH HER HUSBANDS ASSISTANCE. DISCHARGE ORDERS AND COPY OF ORDERS GIVEN. PT TAKEN OUT IN WHEELCHAIR. MOVED FROM WHEELCHAIR TO VEHICLE WITH OUT ASSISTANCE.
== END 2020-07-19 11:41 | disposition home or self-care (01) ==
LOC: CATH 08:00
PROVIDERS: ATTEND Internal Medicine Interventional Cardiology
DX: I48.91 Unspecified atrial fibrillation (principal); E78.5 Hyperlipidemia, unspecified; E07.9 Disorder of thyroid, unspecified; Z79.82 Long term (current) use of aspirin; Z79.899 Other long term (current) drug therapy; Z88.5 Allergy status to narcotic agent; Z90.10 Acquired absence of unspecified breast and nipple; Z86.73 Personal history of transient ischemic attack (TIA), and cerebral infarction without residual deficits; Z80.0 Family history of malignant neoplasm of digestive organs
CPT/HCPCS: 33285; 80053; 85027; 85610; 85730; 87081; 93312; 93320; 93325; C1764; 36415

== ENCOUNTER → 2021-05-17 | Outpatient (CLI) | payer MEDICARE, OTHER ==
[~2021-05-17] MED LIST changes: +CATHETER FLUSH 10 ML SYR IV PRN; -HURRICAINE EXT TUBE (BENZOCAINE) ONE; -NS IV 1000 ML 1,000 ML IV SCH; -NS IV 1000 ML 1,000 ML ONE; +POLY17PO54 PO; +REGADENOSON 0.4 MG/5 ML SYR (LEXISCAN) IV ONE
[2021-05-17 09:03] VITALS: BP 140/81
--- NOTE | 2021-05-17 17:31 | STRESS TEST ---
DATE OF SERVICE: 05/17/2021 RESTING AND POST REGADENOSON TECHNETIUM-99M TETROFOSMIN SPECT CT IMAGING ORDERING PHYSICIAN: Betzaida Michaud APRN PRIMARY PHYSICIAN: Dr. Koroma. CLINICAL DIAGNOSIS: Shortness of breath. Baseline images were carried out after injection of 10.88 mCi of technetium-99m Tetrofosmin. This was followed by 0.4 mg regadenoson and 30.9 mCi of technetium-99m Tetrofosmin for stress imaging. The electrocardiogram showed sinus rhythm at baseline. It did not change significantly with regadenoson infusion. The patient tolerated the procedure well. Review of images at rest and following stress indicates a small to moderate anteroapical perfusion defect, which appears transient. Gated images show normal global left ventricular systolic function with normal regional wall motion. Left ventricular ejection fraction is calculated to be 81%. Left ventricular end diastolic volume is 53 mL. CONCLUSIONS: 1. This study is indicative of a small to moderate amount of anteroapical ischemia. 2. Normal regional wall motion. 3. Normal to hyperdynamic left ventricular systolic function with a calculated ejection fraction of 81%. Job ID: [id number] DocumentID: [id number] Dictated Date: 05/17/2021 15:08:22 Broiler Chef Or Cook Date: 05/17/2021 17:30:22 Dictated By: KSENIA TINSLEY MD, MA, FACP, FACC,
== END ==
LOC: CARD 08:15
PROVIDERS: ATTEND Nurse Practitioner Family
DX: R06.02 Shortness of breath (principal)
CPT/HCPCS: 78452; 93017; A9502

== ENCOUNTER 2021-06-11 08:00 | Day surgery (SDC) | payer MEDICARE, OTHER ==
[~2021-06-11] VITALS: Ht 170 cm; Wt 104.0 kg
[2021-06-11] VITALS (10 sets, daily range): BP systolic 142–158; BP diastolic 71–84
[2021-06-11 07:37] LABS: HEMATOCRIT 43 % (35-52); HEMOGLOBIN 14.1 g/dL (11.5-16.0); MEAN CORPUSCULAR HEMOGLOBIN 29 pg (25-34); MEAN CORPUSCULAR HGB CONC 33 g/dL (32-36); MEAN CORPUSCULAR VOLUME 87 fL (80-99); MEAN PLATELET VOLUME 10.2 fL (9.0-12.2); PLATELET COUNT 219 10^3/uL (130-400); WHITE BLOOD COUNT 7.1 10^3/uL (4.3-11.0)
[2021-06-11 07:52] LABS: INR 0.9 (0.8-1.4); PROTHROMBIN TIME PATIENT 12.8 SEC (12.2-14.7)
[2021-06-11 07:59] LABS: ALBUMIN 3.9 GM/DL (3.2-4.5); BILIRUBIN,TOTAL 0.5 MG/DL (0.1-1.0); CALCIUM 9.2 MG/DL (8.5-10.1); CREATININE SERUM 0.78 MG/DL (0.60-1.30); POTASSIUM 4.1 MMOL/L (3.6-5.0); TOTAL PROTEIN 6.8 GM/DL (6.4-8.2)
[~2021-06-11 08:00] MED LIST changes: -CATHETER FLUSH 10 ML SYR IV PRN; +HEParin (CATH LAB) 1,000 ML IV ONE; +LIDOCAINE 1% INJ 20 ML 20 ML VIAL ONE; +NS IV 1000 ML 1,000 ML IV SCH; +NS IV 1000 ML 1,000 ML ONE; -REGADENOSON 0.4 MG/5 ML SYR (LEXISCAN) IV ONE
[2021-06-11] MEDS ORDERED: LEVO100C4 PO (08:04)
[2021-06-11] MEDS ORDERED: MTP25TSR PO (08:04)
[2021-06-11] MEDS ORDERED: CALC-1049 PO (08:04)
[2021-06-11] MEDS ORDERED: CYAN100088 PO (08:04)
[2021-06-11] MEDS ORDERED: ASCO100024 PO (08:04)
[2021-06-11] MEDS ORDERED: LISI2.5T PO (08:04)
[2021-06-11] MEDS ORDERED: fentaNYL INJ 100 MCG/2 ML AMP ONE (08:18)
[2021-06-11] MEDS ORDERED: MIDAZOLAM 5 MG/5 ML (VERSED) VIAL ONE (08:19)
--- NOTE | 2021-06-11 08:59 | Cardiac Procedure Note-CS/ASA ---
Pre-Procedure Note Pre-Op Procedure Note H&P Reviewed The H&P was reviewed, patient examined and no changes noted. Date H&P Reviewed: Jun 11, 2021 Time H&P Reviewed: 08:30 Conscious Sedation Pre-Proced Time 08:30 ASA Score 2 For ASA 3 and 4: Consider anesthesia and medical clearance. Also, for patients with a history of failed moderate sedation consider anesthesia. Airway Lungs Heart ASA score ASA 1: a normal healthy patient ASA 2: a patient with a mild systemic disease (mid diabetes, controlled hypertension, obesity ASA 3: a patient with a severe systemic disease that limits activity (angina, COPD, prior Myocardial infarction) ASA 4: a patient with an incapacitating disease that is a constant threat to life (CHF, renal failure) ASA 5: a moribund patient not expected to survive 24 hrs. (ruptured aneurysm) ASA 6: a declared brain- patient whose organs are being harvested. For emergent operations, add the letter E after the classification Mallampati Classification Grade 2 Sedation Plan Analgesia, Amnesia, Plan communicated to team members, Discussed options with patient/fam, Discussed risks with patient/fam The patient is an appropriate candidate to undergo the planned procedure, sedation, and anesthesia. The patient immediately re-assessed prior to indication. KSENIA TINSLEY MD FACP FAC CCDS Jun 11, 2021 08:59
[2021-06-11] MEDS ORDERED: PATIENT MAY USE OWN MEDS, ALL PO SCH (09:00)
[2021-06-11] MEDS ORDERED: NS IV 1000 ML 1,000 ML IV SCH (09:00)
--- NOTE | 2021-06-11 09:03 | Discharge Inst-Cardiology ---
Discharge Inst-Cardiac Discharge Medications Continued Medications: Anastrozole (Arimidex) 1 Mg Tablet 1 MG PO 1200, TAB Ascorbic Acid (Vitamin C) 1,000 Mg Tablet 1000 MG PO 1200, TAB Aspirin (Aspirin) 81 Mg Tab.chew 81 MG PO DAILY, TAB Calcium Carb/Vitamin D3/Vit K1 (Viactiv 650 mg-12.5 Mcg Chew) 1 Each Tab.chew 1 EACH PO BID, TAB Cyanocobalamin (Vitamin B-12) (B-12) 1,000 Mcg Tablet 1000 MCG PO 1200, TAB Levothyroxine Sodium (Levothyroxine) 100 Mcg Capsule 100 MCG PO DAILY, CAP Lisinopril (Lisinopril) 2.5 Mg Tablet 2.5 MG PO 1200, TAB Metoprolol Succinate (Metoprolol Succinate) 25 Mg Tab.er.24h 12.5 MG PO 1200, TAB TAKES OF A (25MG) TABLET Polyethylene Glycol 3350 (Polyethylene Glycol 3350) 17 Gm Powd.pack 17 GM PO DAILY PRN for CONSTIPATION-1ST LINE, EACH KSENIA TINSLEY MD FACP FAC CCDS Jun 11, 2021 09:03
--- NOTE | 2021-06-11 09:04 | Discharge Inst-Post CATH ---
Discharge Inst-CATH/EP Post Cardiac Cath/EP D/C Inst Follow Up/Plan F/u with Dr Arita in 2 weeks <b>CARDIAC CATH/EP PROCEDURE DISCHARGE INSTRUCTIONS</b> ACTIVITY * Go Home directly and rest. * Limit activity of the leg (or wrist if it was used) for 7 days including aerobics, swimming, jogging, bicycling, etc. * Restrict stair-climbing for 7 days if possible, if not, climb up with your non-cath leg, then bring together on the same step. * Avoid lifting, pushing, pulling or excessive movement of the affected extremity for 7 days. * Customary sexual activity may be resumed after 2 days-use caution not to use a position that strains or causes pain to the affected extremity. * No driving for 24 hours. * NO SMOKING. * Avoid straining for bowel movements for 7 days. * Gentle walking on level ground is allowed. * Returning to work will depend on the type of procedure and the results. Your doctor will discuss this with you. CALL YOUR DOCTOR FOR ANY OF THE FOLLOWING: *If bleeding from the puncture site occurs- Apply gentle pressure to site with clean cloth and call your doctor or EMS. * If a knot or lump forms under the skin, increases in size, or causes pain. * If bruising appears to be worsening or moving further down your leg instead of disappearing. * Temperature above 101 F. CARE OF YOUR GROIN INCISION; * Bruising or purple discoloration of the skin near the puncture site is common. * You may shower only, no bathtub bathing for 5 days. Be careful to avoid slipping as your leg may feel stiff. * If a closure device was used on your femoral artery, please see the attached guide regarding care of the device and your leg. * Leave dressing on FOR 24 hours. CARE OF YOUR WRIST INCISION; * Bruising or purple discoloration of the skin near the puncture site is common. * You may shower. * DO NOT submerge wrist. * Leave dressing on FOR 24 hours. KSENIA ARITA MD [facility] CCDS Jun 11, 2021 09:04
--- NOTE | 2021-06-11 09:53 | CARDIAC CATHETERIZATION ---
DATE OF SERVICE: 06/11/2021 CARDIAC CATHETERIZATION REPORT The patient is a 65-year-old lady, who has multiple coronary artery disease risk factors and recent myocardial perfusion imaging was indicative of anteroapical ischemia. Cardiac catheterization was recommended. Informed consent was obtained. DESCRIPTION OF PROCEDURE: She was brought to the cardiac catheterization laboratory in a fasting state. Right groin was prepared and draped in the usual sterile fashion. Lidocaine 1% was used for local anesthesia. Modified Seldinger technique was used to advance a 5-Omani sheath into the right femoral artery. Angiography of the right femoral artery was carried out through the sheath. We used a 5-Omani JL4 catheter for left coronary angiography and 5-Omani JR4 catheter for right coronary angiography. A 5-Omani pigtail catheter was used for left heart catheterization and left ventricular angiography. At the end of the procedure, Mynx was used to achieve hemostasis following sheath removal. She tolerated the procedure well. HEMODYNAMICS: Left ventricular end-diastolic pressure following coronary angiography was 21 mmHg. There was no significant pressure gradient on pullback across the aortic valve. Ascending aortic pressure was 131/76 with a mean of 92 mmHg. CORONARY ANGIOGRAPHY: Left main coronary artery, left anterior descending artery, left circumflex artery, right coronary artery do not exhibit angiographically significant disease. Right coronary artery is dominant. LEFT VENTRICULAR ANGIOGRAPHY: Left ventricular angiography was carried out in the right anterior oblique projection. Global left ventricular systolic function, normal regional wall motion abnormality is seen. Left ventricular ejection fraction is approximately 65%. CONCLUSIONS: 1. No angiographically significant coronary artery disease seen on this study. 2. Left ventricular end-diastolic pressure is 20 mmHg. 3. Normal global left ventricular systolic function with ejection fraction 65%. DISCUSSION AND RECOMMENDATIONS: Based on results of the study, her stress test appears to have been false positive. Continuing risk factor modification and conservative management is advised and followup is advised. Job ID: [id number] DocumentID: [id number] Dictated Date: 06/11/2021 09:08:25 Outside Sales Account Manager Date: 06/11/2021 09:53:30 Dictated By: KSENIA TINSLEY MD, MA, FACP, FACC,
== END 2021-06-11 12:15 ==
LOC: CATH 08:00 → SDC 09:14 → CATH 12:15
PROVIDERS: ATTEND Internal Medicine Cardiovascular Disease
DX: R94.39 Abnormal result of other cardiovascular function study (principal); R93.1 Abnormal findings on diagnostic imaging of heart and coronary circulation; I10 Essential (primary) hypertension; E78.5 Hyperlipidemia, unspecified; E78.2 Mixed hyperlipidemia; R53.81 Other malaise; Q21.1 Atrial septal defect; R06.09 Other forms of dyspnea; Z79.899 Other long term (current) drug therapy; Z79.82 Long term (current) use of aspirin; Z90.89 Acquired absence of other organs; Z86.73 Personal history of transient ischemic attack (TIA), and cerebral infarction without residual deficits; Z95.818 Presence of other cardiac implants and grafts
CPT/HCPCS: 80053; 80061; 85027; 85610; 85730; 87081; 93458; C1760; C1894; 36415

== ENCOUNTER → 2022-10-03 | Outpatient (CLI) | payer MEDICARE, OTHER ==
[~2022-10-03] MED LIST changes: +ASCO100024 PO; +CALC-1049 PO; +CYAN100088 PO; -HEParin (CATH LAB) 1,000 ML IV ONE; +LEVO100C4 PO; -LIDOCAINE 1% INJ 20 ML 20 ML VIAL ONE; +LISI2.5T13 PO; +MTP25TSR PO; -NS IV 1000 ML 1,000 ML IV SCH; -NS IV 1000 ML 1,000 ML ONE
--- NOTE | 2022-10-03 18:05 | Diagnostic Imaging Report ---
INDICATION: Pneumonia. COMPARISON: Prior examination from 12/29/2019. FINDINGS: Heart size is normal. Loop recorder overlies the heart. There is no pleural effusion or pneumothorax. The mediastinum is unremarkable. IMPRESSION: No acute cardiopulmonary abnormality. Dictated by: Dictated on workstation # [id number]
[2022-10-03 18:06] LABS: BASOPHILS % (AUTO) 0 % (0-10); EOSINOPHILS # (AUTO) 0.2 10^3/uL (0.0-0.3); EOSINOPHILS % (AUTO) 2 % (0-10); HEMATOCRIT 44 % (35-52); HEMOGLOBIN 14.5 g/dL (11.5-16.0); LYMPHOCYTES # (AUTO) 2.2 10^3/uL (1.0-4.0); LYMPHOCYTES % (AUTO) 25 % (12-44); MEAN CORPUSCULAR HEMOGLOBIN 28 pg (25-34); MEAN CORPUSCULAR HGB CONC 33 g/dL (32-36); MEAN CORPUSCULAR VOLUME 86 fL (80-99); MEAN PLATELET VOLUME 9.8 fL (9.0-12.2); MONOCYTES # (AUTO) 0.8 10^3/uL (0.0-1.0); MONOCYTES % (AUTO) 10 % (0-12); NEUTROPHILS # (AUTO) 5.5 10^3/uL (1.8-7.8); NEUTROPHILS % (AUTO) 63 % (42-75); PLATELET COUNT 197 10^3/uL (130-400); WHITE BLOOD COUNT 8.7 10^3/uL (4.3-11.0)
[2022-10-03 18:27] LABS: ALBUMIN 4.1 GM/DL (3.2-4.5); BILIRUBIN,TOTAL 0.6 MG/DL (0.1-1.0); CALCIUM 9.2 MG/DL (8.5-10.1); CREATININE SERUM 0.82 MG/DL (0.60-1.30); POTASSIUM 3.5 MMOL/L (3.6-5.0); TOTAL PROTEIN 7.1 GM/DL (6.4-8.2)
== END ==
LOC: LAB 17:30
PROVIDERS: ATTEND Registered Nurse Critical Care Medicine
DX: J15.8 Pneumonia due to other specified bacteria (principal); I10 Essential (primary) hypertension; E78.49 Other hyperlipidemia
CPT/HCPCS: 36415; 71046; 80053; 85025; 86663; 86664; 86665; 86738